=== PATIENT | male | born 1960 | race Caucasian/White ===

== ENCOUNTER 2019-11-16 10:20 | Emergency (ER) | payer MEDICARE, SELFPAY ==
--- NOTE | ~2019-11-16 | CT_ITS ---
EXAMINATION: CT abdomen pelvis w con DATE: 11/16/2019 11:43 INDICATION: Abdominal pain, nausea, vomiting, and diarrhea. TECHNIQUE: Computed tomography (CT) of the abdomen and pelvis was performed with 100 mL Omnipaque 350 intravenous contrast. Automated exposure control and iterative reconstruction technique were employe d. The dose-length product was 1605.03 mGy-cm. COMPARISON: CT abdomen and pelvis 05/18/2019, 05/14/2018, chest CT 04/14/2015 FINDINGS: The visualized portions of the lung bases demonstrate minimal atelectasis on the right. No pleural effusion. The heart size is normal. No pericardial effusion. The liver, gallbladder, spleen, and pancreas are normal. There is a 3.6 cm mass in right adrenal gland measuring soft tissue attenuat ion. There is a 1.9 cm mass in left adrenal gland measuring soft tissue attenuation. These masses marcos sured low-attenuation on the CT from 04/14/2015, consistent with adenomas. There are cysts in the kidne ys measuring up to 1.6 cm on the left. The prostate is mildly enlarged. There is diverticulosis of th e colon without evidence of diverticulitis. There are likely changes of appendectomy. There are no pa thologically enlarged lymph nodes. There is no free intraperitoneal fluid. There is severe lumbar spo ndylosis. There are bridging endplate osteophytes at multiple levels in the thoracic spine, consisten t with diffuse idiopathic skeletal hyperostosis (DISH). IMPRESSION: 1. No etiology for the patient's symptoms. Reviewed, dictated and finalized at location A. D REPRESENTATIVES DIRECTOR
--- NOTE | ~2019-11-16 | XR_ITS ---
XR chest 2V DATE: 11/16/2019 12:02 INDICATION: Vomiting TECHNIQUE: PA and lateral views COMPARISON: 05/18/2019 portable AP chest FINDINGS: Normal heart size. No hilar or mediastinal enlargement. No pulmonary infiltrate or consolid ation, pleural effusion or pulmonary vascular congestion or pneumothorax. Aortic ectasia and mild unfolding. Status post posterior cervical spine surgical fusion. There is diffuse idiopathic skeletal hyperostos is of the thoracic spine. There is prominent osteoarthritic change at the left glenohumeral joint. IMPRESSION: No active cardiopulmonary disease Reviewed, dictated and finalized at location B. OBIOLOGY LAB ANALYST
[2019-11-16 10:19] VITALS: BP 141/95; PULSE 107; RESP 20; TEMP 36.9; O2SAT 100
--- NOTE | 2019-11-16 10:24 | ED.NAVMDI ---
HPI - Nausea/Vomiting/Diarrhea General Chief complaint: Nausea/Vomiting/Diarrhea Stated complaint: ABD PAIN N/V Time Seen by Provider: 11/16/19 10:23 Source: patient and RN notes reviewed Mode of arrival: ambulatory Limitations: no limitations History of Present Illness HPI Narrative: A 59 y/o male presents to the ED with intermittent N/V for the past week. He reports that he has been having associated diaphoresis, rhinorrhea, nasal congestion, sore throat, and rt sided ABD pain. He states that he was having diarrhea but that it resolved a couple days ago. He notes that he has been on abx for MRSA since March. He also notes that eating and drinking aggravates his symptoms. He denies any rectal bleeding, hematemesis, SOB, or CP. MD elicited complaint: nausea and vomiting Onset (ago): week(s) (1) Associated nausea: Yes Associated abdominal pain: Yes Location of pain: other (rt sided) Pain consistency: intermittent Exacerbating factors: eating (and drinking) Associated symptoms: diaphoresis and other (rhinorrhea, nasal congestion, sore throat, rt sided ABD pain, and diarrhea (resolved)) Related Data Allergies Allergy/AdvReac Type Severity Reaction Status Date / Time No Known Allergies Allergy Unverified 11/16/19 11:26 Review of Systems Review of Systems: All systems reviewed & are unremarkable except as noted in HPI and below Constitutional: Constitutional: Reports other (diaphoresis) ENT: Reports nasal congestion, Reports nasal discharge and Reports sore throat Cardiovascular: Cardiovascular: Denies chest pain Respiratory: Respiratory: Denies dyspnea Gastrointestinal: Gastrointestinal: Reports abdominal pain (rt sided), Denies hematochezia, Reports diarrhea (resolved), Reports nausea, Reports vomiting and Denies hematemesis [facility] Past Medical History Medical History (Updated 11/16/19 @ 13:35 by Hector Worthy MD) Anxiety Arm fracture, left Arthritis CVA (cerebral vascular accident) Depression GERD (gastroesophageal reflux disease) HLD (hyperlipidemia) HTN (hypertension) MRSA (methicillin resistant Staphylococcus aureus) PUD (peptic ulcer disease) Skin tag Buttocks, removed TIA (transient ischemic attack) x2 Surgical History Surgical History H/O neck surgery H/O tooth extraction History of open reduction and internal fixation (ORIF) procedure Left arm Hx of appendectomy S/P total knee arthroplasty Bilateral knees Social History Social History Smoking packs per day: 0.5 Smoking cigarettes per day: 10.0 Smoking status: Current every day smoker Gender identity (if verbalized by the patient): Male Exam Narrative: Exam Narrative: General appearance: Well-developed, well-nourished Skin: Normal color, clammy skin Head: Normocephalic, nontraumatic Eyes: Clear conjunctiva ENT: Oropharynx normal, ears normal, nose normal Neck: Supple, nontender Chest and respiratory: Airway patent, no respiratory distress, no accessory muscle use Heart: Regular rate/rhythm Abdomen: Soft, diffuse abdominal tenderness, no guarding or rebound, r, no organomegaly, quiet bowel sounds Vascular: Normal peripheral pulses, normal capillary refill. Musculoskeletal: Normal range of motion, nontender back Neurologic: Alert and oriented ?3, ALARM TECHNICIAN is normal as tested, no gross motor deficit Course Course Emergency Course: Improving Vital Signs Vital signs: Vital Signs Temperature 36.9 C 11/16/19 10:19 Pulse Rate 107 H 11/16/19 10:19 Respiratory Rate 20 11/16/19 10:19 Blood Pressure 141/95 H 11/16/19 10:19 Pulse Oximetry 100 11/16/19 10:19
[2019-11-16] MEDS: SODIUM CHLORIDE 0.9% IV 1,000 ML 999 ML IV CONT (11:09)
[2019-11-16] MEDS: ONDANSETRON INJ 4 MG/2 ML VIAL IV PUSH (11:09)
[2019-11-16 11:26] LABS: Basophils Percent Auto 0.5 % (0.2-1.2); Eosinophils Absolute Auto 0.1 K/mm3 (0-0.3); Eosinophils Percent Auto 0.8 % (0-4.4); Hematocrit 46.4 % (42.0-52.0); Hemoglobin 15.5 g/dL (14.0-18.0); Immature Granulocyte Absolute 0.02 K/mm3 (0.00-0.031); Immature Granulocyte Percent A 0.3 % (0-0.5); Lymphocytes Absolute Auto 1.46 K/mm3 (0.9-3.2); Lymphocytes Percent Auto 19.5 % (18.3-44.2); Mean Corpuscular HGB Conc 33.4 g/dl (32-36); Mean Corpuscular Hemoglobin 25.7 pg (26-34); Mean Corpuscular Volume 76.8 fl (80-100); Mean Platelet Volume 10.7 fl (7.4-10.4); Monocytes Absolute Auto 0.4 K/mm3 (0.1-0.6); Monocytes Percent Auto 5.8 % (2.6-8.5); Neutrophils Absolute Auto 5.5 K/mm3 (1.3-6.7); Neutrophils Percent Auto 73.1 % (45.5-73.1); Platelet Count Result 253 k/mm3 (150-375); Red Blood Count 6.04 M/mm3 (4.6-6.20); Red Cell Distribution Width 16.7 % (11.5-14.5); White Blood Count 7.5 K/mm3 (4.5-10.0)
[2019-11-16 11:31] LABS: Estimated CRCL calculation 123 ml/min; Estimated Glomerular Filt Rate > 60
[2019-11-16 11:35] LABS: Prothrombin Time 12.4 Seconds (11.1-14.7)
[2019-11-16 11:36] LABS: Partial Thromboplastin Time 27.5 SECONDS (22.3-36.8)
[2019-11-16 11:40] LABS: Alanine Aminotransferase 22 U/L (4-50); Albumin Level 4.3 g/dL (3.5-5.1); Alkaline Phosphatase 103 U/L (38-126); Aspartate Amino Transferase 26 U/L (17-59); Bilirubin,Total 0.7 mg/dL (0.2-1.3); Blood Urea Nitrogen 18 mg/dL (9-20); Calcium 9.8 mg/dL (8.4-10.2); Carbon Dioxide 20 mmol/L (22-30); Chloride 108 mmol/L (98-107); Estimated CRCL calculation 123 ml/min; Estimated Glomerular Filt Rate > 60; Glucose 136 mg/dL (75-110); Lipase 80 U/L (23-300); Potassium 3.3 mmol/L (3.4-5.0); Sodium 136 mmol/L (137-145)
[2019-11-16 11:41] LABS: Lactic Acid Reflex 1.7 mmol/L (0.7-2.1)
[2019-11-16 11:49] VITALS: BP 126/89; PULSE 94; RESP 16; O2SAT 97
--- NOTE | 2019-11-16 12:15 | PC.NURSE ---
Patient's Penelope contacted per his request. Stated she would be here as soon as her son wakes up.
[2019-11-16 12:17] LABS: CRP 0.8 mg/dL (<1.0)
[2019-11-16 12:23] LABS: Add Urine Microscopic? YES; Appearance Urine Clear (Clear); Bilirubin Urine Negative (Negative); Blood Urine 1+ (Negative); Color Urine Yellow (Yellow); Glucose Urine UA 2+ mg/dL (Negative); Ketones Urine 1+ mg/dL (Negative); Leukocyte Esterase Ur Negative LEU/UL (Negative); Mucus Urine Rare /lpf; Nitrate Urine Negative (Negative); Protein Urine 1+ mg/dL (Negative); Squamous Epithelial Cell Urine Rare /hpf (Few); WBC Urine 0-3 /hpf
[2019-11-16 12:47] VITALS: BP 132/74; PULSE 87; RESP 16; O2SAT 97
[2019-11-16 13:07] LABS: Specific Grav Ur 1.049 (1.001-1.035)
[2019-11-16 13:59] VITALS: BP 130/88; PULSE 78; RESP 16; O2SAT 98
== END 2019-11-16 14:00 | disposition home or self-care (01) ==
PROVIDERS: Emergency Provider Emergency Medicine; PCP Internal Medicine
DX: K52.9 Noninfective gastroenteritis and colitis, unspecified (principal); B34.9 Viral infection, unspecified; E87.6 Hypokalemia; Z86.14 Personal history of Methicillin resistant Staphylococcus aureus infection; R10.9 Unspecified abdominal pain
CPT/HCPCS: 36415; 71046; 74177; 80053; 81001; 83605; 83690; 85025; 85610; 85730; 86140; 87040; 87081; 87804; 87880; 96374; 99284; J2405; J7030; Q9967

== ENCOUNTER 2019-11-26 07:57 | Outpatient (CLI) | payer MEDICARE, SELFPAY ==
--- NOTE | ~2019-11-26 | XR_ITS ---
XR shoulder RT min 2V DATE: 11/26/2019 08:32 INDICATION: Right shoulder pain. Osteoarthritis. TECHNIQUE: 4 views COMPARISON: None FINDINGS: There is moderate inferior spurring at the acromioclavicular joint. Right glenohumeral joint space is well preserved. No fracture, dislocation, periosteal reaction or bone destruction or abnormal soft tissue calcificati on is evident. IMPRESSION: Moderate inferior spurring at the right acromioclavicular joint Reviewed, dictated and finalized at location A.
--- NOTE | ~2019-11-26 | XR_ITS ---
XR shoulder LT min 2V DATE: 11/26/2019 08:32 INDICATION: Bilateral shoulder pain. Osteoarthritis. TECHNIQUE: 4 views COMPARISON: None FINDINGS: There is prominent joint space narrowing and very prominent hypertrophic spurring at the gl enohumeral joint consistent with severe osteoarthritis. There is mildly prominent degenerative spurring at the acromioclavicular joint. No fracture, dislocation, periosteal reaction or bone destruction or abnormal soft tissue calcificati on. Posterior surgical cervical spine fusion is noted bilaterally. Degenerative spurring of the thoracic spine. IMPRESSION: Severe osteoarthritis at glenohumeral joint Moderate degenerative spurring of the left acromion clinically joint Reviewed, dictated and finalized at location A.
--- NOTE | ~2019-11-26 | CT_ITS ---
EXAMINATION: CT lung screening DATE: 11/26/2019 08:22 INDICATION: Personal history of nicotine dependence, current smoker with 44 pack year history TECHNIQUE: Computed tomography (CT) of the chest was performed without intravenous contrast. The dose -length product (DLP) was 334.08 mGy-cm. Automated exposure control and iterative reconstruction tech [employer] were employed. COMPARISON: 05/18/2019 FINDINGS: No suspicious pulmonary nodules are identified. A calcified nodule of the right upper lobe is consistent with old granulomatous disease. There is mild emphysema. The lungs are free of acute op acities. There is no pleural effusion or pneumothorax. An azygos fissure is noted. No pathologically enlarged thoracic lymph nodes are identified. The heart size is normal. Mild bilateral gynecomastia i s noted.. There is moderate thoracic spondylosis. There are bilateral adrenal adenomas. IMPRESSION: 1. Lung-RADS category 1: Negative. Continue annual screening with noncontrast low-dose chest CT in 12 months. Reviewed, dictated and finalized at location A. IMPRESSION: 1. Lung-RADS category 1: Negative. Continue annual screening with noncontrast l ow-dose chest CT in 12 months.
== END 2019-11-26 07:58 | disposition home or self-care (01) ==
PROVIDERS: PCP Internal Medicine; Visit Provider Internal Medicine
DX: Z12.2 Encounter for screening for malignant neoplasm of respiratory organs (principal); Z87.891 Personal history of nicotine dependence; M19.012 Primary osteoarthritis, left shoulder
CPT/HCPCS: 73030; G0297

== ENCOUNTER 2019-11-29 09:24 | Outpatient (CLI) | payer MEDICARE, SELFPAY ==
[2019-11-29 10:03] LABS: Basophils Absolute Auto 0.1 K/mm3 (0.0-0.1); Basophils Percent Auto 0.8 % (0.2-1.2); Eosinophils Absolute Auto 0.1 K/mm3 (0-0.3); Eosinophils Percent Auto 1.5 % (0-4.4); Hematocrit 46.4 % (42.0-52.0); Hemoglobin 15.3 g/dL (14.0-18.0); Immature Granulocyte Absolute 0.03 K/mm3 (0.00-0.031); Immature Granulocyte Percent A 0.4 % (0-0.5); Lymphocytes Percent Auto 15.7 % (18.3-44.2); Mean Corpuscular Hemoglobin 26.4 pg (26-34); Mean Corpuscular Volume 80.1 fl (80-100); Mean Platelet Volume 10.8 fl (7.4-10.4); Monocytes Absolute Auto 0.5 K/mm3 (0.1-0.6); Monocytes Percent Auto 6.4 % (2.6-8.5); Neutrophils Absolute Auto 6.2 K/mm3 (1.3-6.7); Neutrophils Percent Auto 75.2 % (45.5-73.1); Platelet Count Result 245 k/mm3 (150-375); Red Blood Count 5.79 M/mm3 (4.6-6.20); Red Cell Distribution Width 16.6 % (11.5-14.5); White Blood Count 8.3 K/mm3 (4.5-10.0)
[2019-11-29 10:17] LABS: Alanine Aminotransferase 20 U/L (4-50); Albumin Level 4.7 g/dL (3.5-5.1); Alkaline Phosphatase 109 U/L (38-126); Aspartate Amino Transferase 26 U/L (17-59); Bilirubin,Total 0.5 mg/dL (0.2-1.3); Blood Urea Nitrogen 16 mg/dL (9-20); Calcium 9.8 mg/dL (8.4-10.2); Carbon Dioxide 22 mmol/L (22-30); Chloride 105 mmol/L (98-107); Estimated Glomerular Filt Rate > 60; Glucose 136 mg/dL (75-110); Potassium 4.2 mmol/L (3.4-5.0); Sodium 136 mmol/L (137-145)
[2019-11-29 10:41] LABS: Iron 67 ug/dL (49-181)
[2019-11-29 10:50] LABS: Percent Iron Saturation 20 % (20-50)
[2019-11-29 11:08] LABS: Cortisol Random 1.73 ug/dL
[2019-11-29 11:15] LABS: Vitamin D 25 Hydroxy 20.7 ng/mL
[2019-11-29 12:48] LABS: Hemoglobin A1C 5.7 % (<5.7)
[2019-12-01 12:35] LABS: DHEA-Sulfate 31 mcg/dL (38-313)
[2019-12-05 14:39] LABS: PRA 4.85 ng/mL/h (0.25-5.82)
== END 2019-11-29 09:25 | disposition home or self-care (01) ==
PROVIDERS: PCP Internal Medicine; Visit Provider Internal Medicine
DX: I99.8 Other disorder of circulatory system (principal); E55.9 Vitamin D deficiency, unspecified; Z12.5 Encounter for screening for malignant neoplasm of prostate; F32.9 Major depressive disorder, single episode, unspecified; R71.8 Other abnormality of red blood cells; R73.01 Impaired fasting glucose; D35.00 Benign neoplasm of unspecified adrenal gland
CPT/HCPCS: 36415; 80053; 82088; 82306; 82533; 82627; 82728; 83036; 83540; 83550; 84153; 84244; 85025; G0103

== ENCOUNTER 2019-12-02 07:01 | Emergency (ER) | payer MEDICARE, SELFPAY ==
--- NOTE | ~2019-12-02 | CT_ITS ---
EXAMINATION: CT abdomen pelvis w con DATE: 12/02/2019 08:26 INDICATION: Epigastric pain and vomiting TECHNIQUE: Computed tomography (CT) of the abdomen and pelvis was performed with 100 cc Omnipaque 350 intravenous contrast. The dose-length product was 1626.99 mGy-cm. Automated exposure control and ite rative reconstruction technique were employed. COMPARISON: CT dated 11/16/2019 FINDINGS: Lung bases are unremarkable. Heart size normal. No significant pleural or pericardial effus ion. There are low-density lesions in both adrenal glands, largest in the right adrenal gland measuri ng 3.7 cm, likely benign adenomas. No significant vascular abnormality. No lymphadenopathy. The liver, spleen, pancreas within normal limits. There are small subcentimeter hypodensities, many o f which are too small to adequately characterize, without significant change. These likely are benign . No lymphadenopathy. No bowel obstruction. Colonic diverticulosis without diverticulitis. No abnorma l pelvic masses or fluid collections. Prostate gland is enlarged. There are likely changes of appende ctomy. No lymphadenopathy. Gallbladder is present. There is diffuse idiopathic skeletal hyperostosis (DISH) of the thoracic spine. IMPRESSION: 1. No acute abnormality. No findings to account for patient's symptoms. Reviewed, dictated and finalized at location A.
[2019-12-02 06:58] VITALS: BP 168/117; PULSE 87; RESP 25; TEMP 35.7; O2SAT 97
[2019-12-02] MEDS: PROMETHAZINE HCL 25 MG/ML AMPUL 12.5 MG IV PUSH (07:20)
[2019-12-02] MEDS: SODIUM CHLORIDE 0.9% IV 1,000 ML 999 ML IV CONT (07:20)
[2019-12-02 07:28] LABS: Basophils Absolute Auto 0.1 K/mm3 (0.0-0.1); Basophils Percent Auto 0.8 % (0.2-1.2); Eosinophils Absolute Auto 0.3 K/mm3 (0-0.3); Eosinophils Percent Auto 2.6 % (0-4.4); Hematocrit 45.6 % (42.0-52.0); Hemoglobin 15.1 g/dL (14.0-18.0); Immature Granulocyte Absolute 0.04 K/mm3 (0.00-0.031); Immature Granulocyte Percent A 0.4 % (0-0.5); Lymphocytes Absolute Auto 1.15 K/mm3 (0.9-3.2); Lymphocytes Percent Auto 10.4 % (18.3-44.2); Mean Corpuscular HGB Conc 33.1 g/dl (32-36); Mean Corpuscular Volume 78.6 fl (80-100); Mean Platelet Volume 10.9 fl (7.4-10.4); Monocytes Absolute Auto 0.5 K/mm3 (0.1-0.6); Monocytes Percent Auto 4.7 % (2.6-8.5); Neutrophils Absolute Auto 8.9 K/mm3 (1.3-6.7); Neutrophils Percent Auto 81.1 % (45.5-73.1); Platelet Count Result 265 k/mm3 (150-375); Red Cell Distribution Width 15.9 % (11.5-14.5)
--- NOTE | 2019-12-02 07:29 | ECG_ITS ---
Measurements Intervals Almond Rate: 76 P: 61 MD: 235 QRS: 44 QRSD: 94 T: 67 QT: 381 QTc: 430 Interpretive Statements SINUS RHYTHM WITH FIRST DEGREE AV BLOCK WITH MARKED RHYTHM IRREGULARITY, POSSIBLE NON-CONDUCTED PAC, SA BLOCK, AV BLOCK INCOMPLETE RIGHT BUNDLE BRANCH BLOCK BASELINE ARTIFACT- V1-V2 ABNORMAL ECG Electronically Signed On 12-02-2019 8:44:35 CDT by Aaron Zuniga D.O.
[2019-12-02 07:41] LABS: Alanine Aminotransferase 20 U/L (4-50); Albumin Level 4.6 g/dL (3.5-5.1); Alkaline Phosphatase 132 U/L (38-126); Aspartate Amino Transferase 24 U/L (17-59); Bilirubin,Total 0.4 mg/dL (0.2-1.3); Blood Urea Nitrogen 21 mg/dL (9-20); Calcium 9.9 mg/dL (8.4-10.2); Carbon Dioxide 19 mmol/L (22-30); Chloride 107 mmol/L (98-107); Estimated Glomerular Filt Rate > 60; Glucose 174 mg/dL (75-110); Lipase 138 U/L (23-300); Sodium 137 mmol/L (137-145)
[2019-12-02 07:47] LABS: Add Urine Microscopic? YES; Appearance Urine Clear (Clear); Bilirubin Urine Negative (Negative); Blood Urine 1+ (Negative); Color Urine Yellow (Yellow); Glucose Urine UA 2+ mg/dL (Negative); Ketones Urine Trace mg/dL (Negative); Leukocyte Esterase Ur Negative LEU/UL (Negative); Mucus Urine Rare /lpf; Nitrate Urine Negative (Negative); Protein Urine Negative (Negative); Specific Grav Ur 1.016 (1.001-1.035); Squamous Epithelial Cell Urine Rare /hpf (Few); Urobilinogen Urine Negative mg/dL (<2.0); WBC Urine 0-3 /hpf
[2019-12-02 08:31] LABS: Magnesium 2.1 mg/dL (1.6-2.3)
[2019-12-02 08:35] LABS: Troponin I < 0.012 ng/mL (0.000-0.034)
[2019-12-02 08:42] VITALS: BP 175/110; PULSE 98; RESP 18; O2SAT 100
--- NOTE | 2019-12-02 09:17 | ED.NAVMDI ---
HPI - Nausea/Vomiting/Diarrhea General Chief complaint: Nausea/Vomiting/Diarrhea Stated complaint: n/v Time Seen by Provider: 12/02/19 07:02 History of Present Illness HPI Narrative: Patient is a 59-year-old male who presents the ER with epigastric pain as well as vomiting and burning that radiates up into his chest. Denies fever/chills/sweats. No alleviating factors. Has history of acid reflux and has been taking omeprazole. Denies chest pain or shortness of breath and that the symptoms are coming from his abdomen. Recent URI symptoms that he reports have improved. Reports runny nose at this time from vomiting. Related Data Home Medications Medication Instructions Recorded Confirmed aspirin 81 mg tablet,delayed 81 mg PO DAILY 11/22/19 release clopidogrel 75 mg tablet 75 mg PO DAILY 11/22/19 duloxetine 60 mg capsule,delayed 60 mg PO DAILY 11/22/19 release omeprazole 40 mg capsule,delayed 40 mg PO DAILY 11/22/19 release sulfamethoxazole 800 1 tablet PO Q12H 11/22/19 mg-trimethoprim 160 mg tablet Allergies Allergy/AdvReac Type Severity Reaction Status Date / Time No Known Allergies Allergy Verified 12/02/19 07:07 Review of Systems Review of Systems: All systems reviewed & are unremarkable except as noted in HPI and below Constitutional: Constitutional: Denies chills, Denies fever(s) and Denies weakness ENT: Denies nasal congestion and Denies sore throat Comments: Rhinorrhea Cardiovascular: Cardiovascular: Denies chest pain and Denies radiating jaw, neck or arm pain Respiratory: Respiratory: Denies cough, Denies dyspnea and Denies wheezing Gastrointestinal: Gastrointestinal: Reports abdominal pain, Reports heartburn, Denies diarrhea, Reports nausea and Reports vomiting Comments: denies black tarry stools. [facility] Past Medical History Medical History (Updated 12/02/19 @ 12:25 by Bijan Hyman MD) Anxiety Arm fracture, left Arthritis CVA (cerebral vascular accident) Depression GERD (gastroesophageal reflux disease) HLD (hyperlipidemia) HTN (hypertension) MRSA (methicillin resistant Staphylococcus aureus) PUD (peptic ulcer disease) Skin tag Buttocks, removed TIA (transient ischemic attack) x2 Surgical History Surgical History (Updated 11/22/19 @ 09:48 by Bro Hughes MD) H/O neck surgery H/O tooth extraction History of open reduction and internal fixation (ORIF) procedure Left arm Hx of appendectomy S/P total knee arthroplasty Bilateral knees Social History Social History (Updated 11/22/19 @ 09:23 by Yobany Marcial [facility]) Smoking packs per day: 0.5 Smoking cigarettes per day: 10.0 Smoking status: Current every day smoker Alcohol intake: never Substance use: never Gender identity (if verbalized by the patient): Male Spiritual care concerns: No Exam Narrative: Exam Narrative: GENERAL: ill-appearing, well-nourished, and wretching. HEAD: Normocephalic, atraumatic. ENT: Mucous membranes moist. NECK: Supple. CHEST: Clear to auscultation. No respiratory distress. HEART: Regular rate with frequent dropped beats. Normal peripheral pulses. ABDOMEN: Soft, nontender, nondistended. EXTREMITIES: Normal range of motion. No edema. SKIN: Warm, dry, no rash. NEURO: Alert and oriented x3. Course Course Emergency Course: Patient informed of results. Feels much better after Phenergan and GI cocktail. Discussed EKG with cardiology, patient seems to have first-degree AV block and occasionally patient appears to have Wenkebach when looking at the playground monitor. No need to change medications at this time. Needs follow-up with PCP. Vital Signs Vital signs: Vital Signs Temperature 96.3 F L 12/02/19 06:58 Pulse Rate 87 12/02/19 06:58 Respiratory Rate 25 H 12/02/19 06:58 Blood Pressure 168/117 H 12/02/19 06:58 Pulse Oximetry 97 12/02/19 06:58 Temperature 96.3 F L 12/02/19 06:58 Pulse Rate 106 H 12/02/19 10:37 Respiratory Rate 16 03
[2019-12-02] MEDS: BELLADONNA ALK/PHENOB ELIX 10 ML, MAG HYDROX/ALUMINUM HYD/SIMETH 30 ML, LIDOCAINE HCL 2... PO (09:18)
[2019-12-02 10:37] VITALS: BP 167/111; PULSE 106; RESP 16; O2SAT 100
[2019-12-02 12:42] VITALS: BP 145/76; PULSE 84; RESP 18; O2SAT 100
== END 2019-12-02 12:44 | disposition home or self-care (01) ==
PROVIDERS: Emergency Provider Emergency Medicine; PCP Internal Medicine
DX: K21.9 Gastro-esophageal reflux disease without esophagitis (principal); I44.0 Atrioventricular block, first degree; M19.90 Unspecified osteoarthritis, unspecified site; Z86.73 Personal history of transient ischemic attack (TIA), and cerebral infarction without residual deficits; E78.5 Hyperlipidemia, unspecified; I10 Essential (primary) hypertension; Z86.14 Personal history of Methicillin resistant Staphylococcus aureus infection; Z87.11 Personal history of peptic ulcer disease; Z79.82 Long term (current) use of aspirin; Z96.653 Presence of artificial knee joint, bilateral; I45.10 Unspecified right bundle-branch block; R94.31 Abnormal electrocardiogram [ECG] [EKG]
CPT/HCPCS: 36415; 74177; 80053; 81001; 83690; 83735; 84484; 85025; 93005; 96361; 96374; 99284; A9270; J2550; J7030; Q9967

== ENCOUNTER 2019-12-06 07:42 | Outpatient (CLI) | payer MEDICARE, SELFPAY ==
[2019-12-06 09:14] LABS: Cortisol Random 1.57 ug/dL
== END 2019-12-06 07:43 | disposition home or self-care (01) ==
PROVIDERS: PCP Internal Medicine; Visit Provider Internal Medicine
DX: D35.00 Benign neoplasm of unspecified adrenal gland (principal)
CPT/HCPCS: 36415; 82533

== ENCOUNTER 2019-12-08 07:37 | Outpatient (CLI) | payer MEDICARE, SELFPAY ==
[2019-12-11 16:10] LABS: Calculated Total (E+NE) 75 mcg/24 h (26-121); Dopamine, 24hr Urine 141 mcg/24 h (52-480); Epinephrine, 24hr Urine 11 mcg/24 h (2-24); Norepinephrine, 24hr Urine 64 mcg/24 h (15-100)
== END 2019-12-08 07:38 | disposition home or self-care (01) ==
LOC: ANHLAB 07:38
PROVIDERS: PCP Internal Medicine; Visit Provider Internal Medicine
DX: D35.00 Benign neoplasm of unspecified adrenal gland (principal)
CPT/HCPCS: 82384

== ENCOUNTER 2020-01-24 12:14 | Emergency (ER) | payer MEDICARE, SELFPAY ==
--- NOTE | ~2020-01-24 | CT_ITS ---
EXAMINATION: CT abdomen pelvis w con DATE: 01/24/2020 14:09 INDICATION: Abdominal pain. Vomiting. TECHNIQUE: Computed tomography (CT) of the abdomen and pelvis was performed with 100 cc Omnipaque 350 intravenous contrast. Automated exposure control and iterative reconstruction technique were employe d. Exam dose: 1551.61 mGy-cm total exam DLP. COMPARISON: 12/02/2019 CT abdomen pelvis 05/14/2018 CT abdomen pelvis FINDINGS: The included lower lung gann are clear of infiltrate or consolidation or mass lesion. Normal heart size. No pericardial or pleural effusion. The liver, spleen, pancreas, gallbladder, bile ducts and pancreatic duct are unremarkable. Stable bilateral adrenal masses, larger on the right, likely due to adenomas. Scattered bilateral largely stable hypoenhancing lesions of the kidneys. No urinary tract calculus or hydroureteronephrosis. Prostate enlargement. The urinary bladder appears unremarkable. Normal caliber of the abdominal aorta. No intraperitoneal or retroperitoneal or pelvic mass lesion or adenopathy or ascites. Small sliding hiatal hernia. There are numerous diverticula in the sigmoid colon; no CT evidence of diverticulitis. Probable appen dectomy. No bowel obstruction or intraperitoneal free air. There is Very small fat-containing umbilical hernia. Small left inguinal fat-containing hernia. Diffuse idiopathic skeletal hyperostosis of the lower thoracic and upper lumbar spine. Prominent dege nerative disc disease at L5-S1. There is minimal mild retrolisthesis at L5-S1. There is an IMPRESSION: No bowel obstruction or free air Small sliding hiatal hernia Diverticulosis of the colon Reviewed, dictated and finalized at Location A. Reviewed, dictated and finalized at location A.
--- NOTE | ~2020-01-24 | XR_ITS ---
XR chest 1V portable DATE: 01/24/2020 13:15 INDICATION: Weakness TECHNIQUE: Portable AP chest on 01/24/2020 at 1316 hours COMPARISON: 11/26/2019 CT lung screening FINDINGS: Lateral hyperinflation. No pulmonary infiltrate or consolidation, pleural effusion or pulmo nary vascular congestion or pneumothorax. Normal heart size. Diffuse idiopathic skeletal hyperostosis of the thoracic spine. Prominent osteoarthritic change at th e left glenohumeral joint. Degenerative change at the acromioclavicular joints. Posterior cervical spine surgical fusion. IMPRESSION: Bilateral hyperinflation; no active cardiopulmonary disease Reviewed, dictated and finalized at location A.
[2020-01-24 12:20] VITALS: BP 171/117; PULSE 100; RESP 18; TEMP 36.3; O2SAT 100
--- NOTE | 2020-01-24 12:43 | ED.NAVMDI ---
HPI - Nausea/Vomiting/Diarrhea General Chief complaint: Nausea/Vomiting/Diarrhea Stated complaint: vomiting Time Seen by Provider: 01/24/20 12:18 Source: patient Mode of arrival: wheelchair Limitations: no limitations History of Present Illness HPI Narrative: This is a 59 year old male that presents to the ER for vomiting since this morning. Reports he has not been able to keep anything down. He has been vomiting all morning. Reports associated lower abdominal pain. Also reports dysuria. Denies fever, diarrhea, or hematuria. Related Data Home Medications Medication Instructions Recorded Confirmed aspirin 81 mg tablet,delayed 81 mg PO DAILY 11/22/19 release sulfamethoxazole 800 1 tablet PO Q12H 12/22/19 mg-trimethoprim 160 mg tablet Allergies Allergy/AdvReac Type Severity Reaction Status Date / Time No Known Allergies Allergy Verified 12/22/19 08:11 Review of Systems Review of Systems: Narrative: CONSTITUTIONAL: Denies fever CARDIOVASCULAR: Denies chest pain RESPIRATORY: Denies cough or dyspnea. GASTROINTESTINAL: Reports abdominal pain, nausea, vomiting. Denies diarrhea. GENITOURINARY: Reports dysuria. Denies hematuria. All systems reviewed & are unremarkable except as noted in HPI and below PMFSH Past Medical History Medical History (Updated 01/24/20 @ 16:11 by Laura Desir PA-C) Anxiety Arm fracture, left Arthritis CVA (cerebral vascular accident) Depression GERD (gastroesophageal reflux disease) HLD (hyperlipidemia) HTN (hypertension) MRSA (methicillin resistant Staphylococcus aureus) PUD (peptic ulcer disease) Skin tag Buttocks, removed TIA (transient ischemic attack) x2 Surgical History Surgical History (Updated 11/22/19 @ 09:48 by Bro Hughes MD) H/O neck surgery H/O tooth extraction History of open reduction and internal fixation (ORIF) procedure Left arm Hx of appendectomy S/P total knee arthroplasty Bilateral knees Social History Social History (Updated 11/22/19 @ 09:23 by RAMÍREZ Sue) Smoking packs per day: 0.5 Smoking cigarettes per day: 10.0 Smoking status: Current every day smoker Alcohol intake: never Substance use: never Gender identity (if verbalized by the patient): Male Spiritual care concerns: No Exam Narrative: Exam Narrative: GENERAL: Well-appearing, well-nourished, and in acute distress due to pain. HEAD: Normocephalic, atraumatic. EYES: EOMI. CHEST: Clear to auscultation. No respiratory distress. No wheezes rales or rhonchi HEART: Regular rate and rhythm. No murmur heard. Normal peripheral pulses. ABDOMEN: Soft, nondistended, normal active bowel sounds. Mild tenderness to palpation throughout the abdomen, without guarding EXTREMITIES: Normal range of motion. No edema. SKIN: Warm, dry, no rash. NEURO: No focal deficits. Alert and oriented x3. PSYCH: Normal mood and affect Course Consultations Consultation #1: Spoke with Dr. Hughes about patient and work-up will follow-up in clinic. Date: 01/24/20 Time: 16:24 Vital Signs Vital signs: Vital Signs Temperature 97.4 F L 01/24/20 12:20 Pulse Rate 100 01/24/20 12:20 Respiratory Rate 18 01/24/20 12:20 Blood Pressure 171/117 H 01/24/20 12:20 Pulse Oximetry 100 01/24/20 12:20 Temperature 97.4 F L 01/24/20 12:20 Pulse Rate 60 01/24/20 14:51 Respiratory Rate 18 01/24/20 14:51 Blood Pressure 168/97 H 01/24/20 14:51 Pulse Oximetry 100 01/24/20 14:51 MDM - Nausea/Vomiting/Diarrhea MDM Narrative Medical decision making narrative: Patient presents the emergency department for nausea and vomiting this morning. Patient is afebrile and nontoxic-appearing. Vitals are normal other than elevation in blood pressure to systolic in the 170s. Most recent blood pressure 168/97. Patient was instructed to follow-up with his primary care doctor for this. CBC with mild leukocytosis to 12.1. Metabolic panel without acute changes. Lactic acid was elevated
[2020-01-24] MEDS: SODIUM CHLORIDE 0.9% IV 1,000 ML 999 ML IV CONT (12:45)
[2020-01-24] MEDS: FAMOTIDINE 20 MG/2 ML VIAL IV PUSH (12:46)
[2020-01-24] MEDS: ONDANSETRON INJ 4 MG/2 ML VIAL IV PUSH (12:46)
[2020-01-24 12:57] LABS: Basophils Absolute Auto 0.1 K/mm3 (0.0-0.1); Basophils Percent Auto 0.7 % (0.2-1.2); Eosinophils Percent Auto 0.1 % (0-4.4); Hematocrit 49.5 % (42.0-52.0); Hemoglobin 16.8 g/dL (14.0-18.0); Immature Granulocyte Absolute 0.04 K/mm3 (0.00-0.031); Immature Granulocyte Percent A 0.3 % (0-0.5); Lymphocytes Absolute Auto 1.01 K/mm3 (0.9-3.2); Lymphocytes Percent Auto 8.3 % (18.3-44.2); Mean Corpuscular HGB Conc 33.9 g/dl (32-36); Mean Corpuscular Hemoglobin 26.8 pg (26-34); Mean Corpuscular Volume 79.1 fl (80-100); Mean Platelet Volume 11.5 fl (7.4-10.4); Monocytes Absolute Auto 0.5 K/mm3 (0.1-0.6); Neutrophils Absolute Auto 10.5 K/mm3 (1.3-6.7); Neutrophils Percent Auto 86.6 % (45.5-73.1); Platelet Count Result 348 k/mm3 (150-375); Red Blood Count 6.26 M/mm3 (4.6-6.20); Red Cell Distribution Width 15.2 % (11.5-14.5); White Blood Count 12.1 K/mm3 (4.5-10.0)
[2020-01-24 13:06] LABS: INR 0.9; Prothrombin Time 11.9 Seconds (11.1-14.7)
[2020-01-24 13:07] LABS: Lipase 86 U/L (23-300); Partial Thromboplastin Time 26.9 SECONDS (22.3-36.8)
[2020-01-24 13:08] LABS: Lactic Acid Reflex 3.1 mmol/L (0.7-2.1)
[2020-01-24 13:21] LABS: Alanine Aminotransferase 23 U/L (4-50); Albumin Level 4.7 g/dL (3.5-5.1); Alkaline Phosphatase 131 U/L (38-126); Aspartate Amino Transferase 26 U/L (17-59); Bilirubin,Total 0.7 mg/dL (0.2-1.3); Blood Urea Nitrogen 19 mg/dL (9-20); CRP 0.7 mg/dL (<1.0); Calcium 10.2 mg/dL (8.4-10.2); Carbon Dioxide 19 mmol/L (22-30); Chloride 107 mmol/L (98-107); Estimated CRCL calculation 112 ml/min; Estimated Glomerular Filt Rate > 60; Glucose 160 mg/dL (75-110); Potassium 3.6 mmol/L (3.4-5.0); Sodium 137 mmol/L (137-145)
--- NOTE | 2020-01-24 13:29 | PC.NURSE ---
Pt unable to give urine at this time.
[2020-01-24 13:47] LABS: Add Urine Microscopic? YES; Appearance Urine Clear (Clear); Bilirubin Urine Negative (Negative); Blood Urine 1+ (Negative); Color Urine Yellow (Yellow); Glucose Urine UA 2+ mg/dL (Negative); Ketones Urine 1+ mg/dL (Negative); Leukocyte Esterase Ur Negative LEU/UL (Negative); Mucus Urine Rare /lpf; Nitrate Urine Negative (Negative); Protein Urine 1+ mg/dL (Negative); Specific Grav Ur 1.019 (1.001-1.035); Squamous Epithelial Cell Urine Rare /hpf (Few); Urobilinogen Urine Negative mg/dL (<2.0); WBC Urine 0-3 /hpf
[2020-01-24 14:51] VITALS: BP 168/97; PULSE 60; RESP 18; O2SAT 100
[2020-01-24 15:54] LABS: Reflex Lactic Acid Yes or No Add Lactic
[2020-01-24 16:02] LABS: Lactic Acid 2.2 mmol/L (0.7-2.1)
== END 2020-01-24 16:39 | disposition home or self-care (01) ==
PROVIDERS: Physician Assistant; Emergency Provider Emergency Medicine; PCP Internal Medicine
DX: R11.2 Nausea with vomiting, unspecified (principal); Z79.82 Long term (current) use of aspirin; K21.9 Gastro-esophageal reflux disease without esophagitis; E78.5 Hyperlipidemia, unspecified; I10 Essential (primary) hypertension; Z87.11 Personal history of peptic ulcer disease; Z86.14 Personal history of Methicillin resistant Staphylococcus aureus infection; Z96.653 Presence of artificial knee joint, bilateral; Z86.73 Personal history of transient ischemic attack (TIA), and cerebral infarction without residual deficits; F17.200 Nicotine dependence, unspecified, uncomplicated; K44.9 Diaphragmatic hernia without obstruction or gangrene; K57.90 Diverticulosis of intestine, part unspecified, without perforation or abscess without bleeding; F17.210 Nicotine dependence, cigarettes, uncomplicated; R10.30 Lower abdominal pain, unspecified
CPT/HCPCS: 36415; 71045; 74177; 80053; 81001; 83605; 83690; 85025; 85610; 85730; 86140; 96365; 96375; 99284; J0131; J2405; J7030; Q9967

== ENCOUNTER 2020-02-16 07:43 | Outpatient (CLI) | payer MEDICARE, SELFPAY ==
[2020-02-16 08:40] LABS: Alanine Aminotransferase 14 U/L (4-50); Alkaline Phosphatase 90 U/L (38-126); Aspartate Amino Transferase 22 U/L (17-59); Bilirubin,Total 0.4 mg/dL (0.2-1.3); Blood Urea Nitrogen 14 mg/dL (9-20); Calcium 9.2 mg/dL (8.4-10.2); Carbon Dioxide 29 mmol/L (22-30); Chloride 105 mmol/L (98-107); Cholesterol 209 mg/dL (0-200); Estimated Glomerular Filt Rate > 60; Glucose 115 mg/dL (75-110); HDL Direct 43 mg/dL; Potassium 4.4 mmol/L (3.4-5.0); Sodium 137 mmol/L (137-145); Triglycerides 75 mg/dL (<150)
[2020-02-16 08:51] LABS: LDL Cholesterol Direct 142 mg/dL
[2020-02-18 03:41] LABS: Insulin Level Total 12.4 uIU/mL (<=19.6)
[2020-02-19 06:21] LABS: C-Peptide 2.88 ng/mL (0.80-3.85)
== END 2020-02-16 07:44 | disposition home or self-care (01) ==
PROVIDERS: PCP Internal Medicine; Visit Provider Internal Medicine
DX: E03.9 Hypothyroidism, unspecified (principal); E78.5 Hyperlipidemia, unspecified; E16.2 Hypoglycemia, unspecified; G40.909 Epilepsy, unspecified, not intractable, without status epilepticus
CPT/HCPCS: 36415; 80053; 80061; 83525; 84443; 84681

== ENCOUNTER 2020-04-01 14:55 | Emergency (ER) | payer MEDICARE, SELFPAY ==
[2020-04-01 15:02] VITALS: BP 143/110; PULSE 96; RESP 24; TEMP 36.7; O2SAT 95
--- NOTE | 2020-04-01 15:37 | PC.NURSE ---
Asked pt for urine sample, left urinal at bedside
[2020-04-01 15:41] LABS: Basophils Absolute Auto 0.1 K/mm3 (0.0-0.1); Basophils Percent Auto 0.5 % (0.2-1.2); Eosinophils Absolute Auto 0.1 K/mm3 (0-0.3); Eosinophils Percent Auto 0.7 % (0-4.4); Hematocrit 51.1 % (42.0-52.0); Hemoglobin 17.4 g/dL (14.0-18.0); Immature Granulocyte Absolute 0.05 K/mm3 (0.00-0.031); Immature Granulocyte Percent A 0.4 % (0-0.5); Lymphocytes Percent Auto 10.5 % (18.3-44.2); Mean Corpuscular HGB Conc 34.1 g/dl (32-36); Mean Corpuscular Hemoglobin 27.1 pg (26-34); Mean Corpuscular Volume 79.5 fl (80-100); Mean Platelet Volume 11.7 fl (7.4-10.4); Monocytes Absolute Auto 0.7 K/mm3 (0.1-0.6); Monocytes Percent Auto 5.3 % (2.6-8.5); Neutrophils Percent Auto 82.6 % (45.5-73.1); Platelet Count Result 317 k/mm3 (150-375); Red Blood Count 6.43 M/mm3 (4.6-6.20); Red Cell Distribution Width 15.9 % (11.5-14.5); White Blood Count 13.4 K/mm3 (4.5-10.0)
--- NOTE | 2020-04-01 15:52 | ED.GENADULT ---
HPI - General Adult General Chief complaint: Nausea/Vomiting/Diarrhea Stated complaint: Abd pain N/V Time Seen by Provider: 04/01/20 14:56 History of Present Illness HPI narrative: Patient is a 59 y/o male complaining of nausea and vomiting for 4-5 hours. He states that he vomited bile and vomited more than 10 times. There is no alleviating or exacerbating factor. He also has some generalized abdominal pain. He denies diarrhea. Related Data Home Medications Medication Instructions Recorded Confirmed aspirin 81 mg tablet,delayed 81 mg PO DAILY 11/22/19 release sulfamethoxazole 800 1 tablet PO Q12H 02/15/20 mg-trimethoprim 160 mg tablet clopidogrel [Plavix] 75 mg PO DAILY 04/01/20 04/01/20 ipratropium bromide INTRANASAL 04/01/20 Allergies Allergy/AdvReac Type Severity Reaction Status Date / Time No Known Allergies Allergy Verified 03/25/20 09:46 Review of Systems Constitutional: Constitutional: Denies chills, Denies fever(s), Denies headache(s) and Denies weakness Eyes: Eyes: Denies blurry vision ENT: Denies headache(s) and Denies neck pain Cardiovascular: Cardiovascular: Denies chest pain and Denies dyspnea Respiratory: Respiratory: Denies cough and Denies dyspnea Gastrointestinal: Gastrointestinal: Reports abdominal pain, Denies diarrhea, Reports nausea and Reports vomiting Genitourinary: Genitourinary: Denies hematuria and Denies dysuria Musculoskeletal: Musculoskeletal: Denies back pain and Denies neck pain Neurologic: Denies headache(s) and Denies weakness [facility] Past Medical History Medical History Anxiety Arm fracture, left Arthritis CVA (cerebral vascular accident) Depression GERD (gastroesophageal reflux disease) HLD (hyperlipidemia) HTN (hypertension) MRSA (methicillin resistant Staphylococcus aureus) Osteoarthritis of left shoulder PUD (peptic ulcer disease) Skin tag Buttocks, removed TIA (transient ischemic attack) x2 Surgical History Surgical History H/O neck surgery H/O tooth extraction History of open reduction and internal fixation (ORIF) procedure Left arm Hx of appendectomy S/P total knee arthroplasty Bilateral knees Social History Social History Smoking packs per day: 0.5 Smoking cigarettes per day: 10.0 Smoking status: Current every day smoker Alcohol intake: never Substance use: never Gender identity (if verbalized by the patient): Male Spiritual care concerns: No Exam Const: General: no acute distress and well developed Orientation/consciousness: oriented to person, oriented to place, oriented to time and patient oriented x3 HENMT: Head: normocephalic Ears: external ears normal General nose exam: Normal external nose present Eyes: General: appearance normal, both eyes and all related structures Conjunctivae: conjunctivae normal Neck: Neck: normal visual inspection and full ROM Chest: Chest palpation & inspection: normal inspection of the chest and no tenderness Resp: Effort & Inspection: normal respiratory effort Auscultation: clear to auscultation bilaterally Cardio: Rate: regular rate Rhythm: regular rhythm GI: GI Palp: No abdominal tenderness and Yes Soft to palpation Skin: General skin exam: normal color and turgor normal Neuro: General: oriented to person, oriented to place, oriented to time and patient oriented x3 Cognition (Neuro): normal cognition Extrem: General: normal to inspection, full ROM and no pedal edema Psych: Appearance: grossly normal Mental Status: mental status grossly normal Affect: normal affect Course Reevaluation(s) Reevaluation #1: Nurse reports that patient has left before he was re-evaluated or given any instructions. He is considered to have left AMA. Date: 04/01/20 Time: 19:35 Vital Signs Vital signs: Vital Signs Temperature
[2020-04-01 15:54] LABS: Alanine Aminotransferase 26 U/L (4-50); Alkaline Phosphatase 133 U/L (38-126); Aspartate Amino Transferase 32 U/L (17-59); Bilirubin,Total 0.9 mg/dL (0.2-1.3); Blood Urea Nitrogen 15 mg/dL (9-20); Calcium 10.7 mg/dL (8.4-10.2); Carbon Dioxide 21 mmol/L (22-30); Chloride 104 mmol/L (98-107); Estimated CRCL calculation 81 ml/min; Estimated Glomerular Filt Rate 52; Glucose 150 mg/dL (75-110); Lipase 102 U/L (23-300); Potassium 3.6 mmol/L (3.4-5.0); Sodium 136 mmol/L (137-145)
[2020-04-01 16:07] LABS: Add Urine Microscopic? YES; Appearance Urine Clear (Clear); Bilirubin Urine Negative (Negative); Blood Urine 1+ (Negative); Color Urine Yellow (Yellow); Glucose Urine UA Negative (Negative); Ketones Urine Trace mg/dL (Negative); Leukocyte Esterase Ur Trace LEU/UL (Negative); Mucus Urine Rare /lpf; Nitrate Urine Negative (Negative); Protein Urine 1+ mg/dL (Negative); RBC Urine 21-50 /hpf (0-2); Specific Grav Ur 1.019 (1.001-1.035); Squamous Epithelial Cell Urine Rare /hpf (Few)
[2020-04-01 16:21] LABS: Amphetamine Screen Urine Negative (Negative); Barbiturate Screen Urine Negative (Negative); Benzodiazepines Screen Urine Negative (Negative); Cannabinoid Screen Urine Positive (Negative); Cocaine Screen Urine Negative (Negative); Methadone Screen Urine Negative (Negative); Opiate Screen Urine Negative (Negative); Phencyclidine Screen Urine Negative (Negative)
[2020-04-01 17:28] VITALS: BP 142/68; PULSE 78; RESP 24; O2SAT 99
--- NOTE | 2020-04-01 19:35 | PC.NURSE ---
pt seen walking out of ed by multiple ed staff at this time.
--- NOTE | 2020-04-01 19:41 | PC.NURSE ---
attempted to call patient and emergency contact in chart to find out if patient left ed with iv in. no answer. will try again.
--- NOTE | 2020-04-01 20:03 | PC.NURSE ---
attempted to call patient again, no answer. ed charge nurse made aware.
== END 2020-04-01 20:03 | disposition left against medical advice (07) ==
PROVIDERS: Emergency Provider Emergency Medicine; PCP Internal Medicine
DX: R11.15 Cyclical vomiting syndrome unrelated to migraine (principal); E78.5 Hyperlipidemia, unspecified; I10 Essential (primary) hypertension; K21.9 Gastro-esophageal reflux disease without esophagitis; Z86.14 Personal history of Methicillin resistant Staphylococcus aureus infection; M19.012 Primary osteoarthritis, left shoulder; Z96.653 Presence of artificial knee joint, bilateral; F17.210 Nicotine dependence, cigarettes, uncomplicated; Z86.73 Personal history of transient ischemic attack (TIA), and cerebral infarction without residual deficits; Z79.02 Long term (current) use of antithrombotics/antiplatelets; Z79.82 Long term (current) use of aspirin
CPT/HCPCS: 36415; 80053; 80307; 81001; 83690; 85025; 99283

== ENCOUNTER 2023-03-04 05:17 | Inpatient (IN) | payer MEDICARE, SELFPAY ==
[2023-03-04] VITALS (14 sets, daily range): BP systolic 111–184; BP diastolic 69–124; PULSE 58–98; RESP 12–30; TEMP 35–36.6; O2SAT 90–99; BMI 40.8
--- NOTE | ~2023-03-04 | CT_ITS ---
Clinical Indication: Esophagitis, vomiting, abdominal pain CT Scan of the Chest, Abdomen, and Pelvis with Contrast: Technique: Contiguous sections were acquired throughout the chest, abdomen, and pelvis after intraven ous administration of 100 cc of Omnipaque 350. Dose reduction technique was used on this scan by uti lizing automated exposure control and iterative reconstruction technique. The dose-length product (DL P) was 2324.10 mGy-cm. COMPARISON: 01/24/2020 Findings: There is no evidence of any significant mediastinal, hilar or axillary lymphadenopathy. Questionable mild, diffuse esophageal wall thickening. No aortic aneurysm or dissection. No large central pulmonar y embolus evident. There is no evidence of pleural or pericardial effusion. There is focal nodularity in the right middle lobe with somewhat tree-in-bud appearance. No other pul monary abnormality seen. The liver, spleen, pancreas, gallbladder, and kidneys are within normal limits. Stable 3.7 cm right a drenal nodule. Stable 1.9 cm left adrenal nodule. No evidence of aortic aneurysm. No lymphadenopathy . No bowel obstruction or bowel wall thickening. There is no evidence to suggest acute appendicitis. Urinary bladder is unremarkable. Prostate gland and seminal vesicles are unremarkable. No ascites. Impression: Probable focal small airways infectious process in the right middle lobe. Consider follow-up CT to as sess resolution as indicated. Questionable esophagitis. Stable bilateral adrenal adenomas, right larger than left. Reviewed, dictated and finalized at [facility]. Impression: Probable focal small airways infectious process in the right middle lobe. Consi makayla follow-up CT to assess resolution as indicated. Questionable esophagitis. Stable bilateral adrenal adenomas, right larger than left.
[2023-03-04 05:47] LABS: Glucose Point of Care 175 mg/dl (65-105)
[2023-03-04 05:56] LABS: Basophils Absolute Auto 0.1 K/mm3 (0.0-0.1); Basophils Percent Auto 0.5 % (0.2-1.2); Eosinophils Absolute Auto 0.2 K/mm3 (0-0.3); Eosinophils Percent Auto 1.8 % (0-4.4); Hematocrit 54.4 % (42.0-52.0); Hemoglobin 17.5 g/dL (14.0-18.0); Immature Granulocyte Absolute 0.07 K/mm3 (0.00-0.031); Immature Granulocyte Percent A 0.5 % (0-0.5); Lymphocytes Absolute Auto 1.74 K/mm3 (0.9-3.2); Mean Corpuscular HGB Conc 32.2 g/dl (32-36); Mean Corpuscular Hemoglobin 26.6 pg (26-34); Mean Corpuscular Volume 82.7 fl (80-100); Monocytes Absolute Auto 0.7 K/mm3 (0.1-0.6); Monocytes Percent Auto 4.9 % (2.6-8.5); Neutrophils Absolute Auto 10.6 K/mm3 (1.3-6.7); Neutrophils Percent Auto 79.3 % (45.5-73.1); Platelet Count Result 243 k/mm3 (150-375); Red Blood Count 6.58 M/mm3 (4.6-6.20); Red Cell Distribution Width 16.7 % (11.5-14.5); White Blood Count 13.4 K/mm3 (4.5-10.0)
[2023-03-04] MEDS: PANTOPRAZOLE SODIUM IV 40 MG VIAL 80 MG IV PUSH (06:03)
[2023-03-04] MEDS: SODIUM CHLORIDE 0.9% IV 2,000 ML 999 ML IV CONT (06:03)
[2023-03-04] MEDS: ONDANSETRON INJ 4 MG/2 ML VIAL IV PUSH (06:03)
[2023-03-04 06:34] LABS: Influenza A QL RT-PCR Negative (Negative); Influenza B QL RT-PCR Negative (Negative); RSV RNA, RT-PCR Negative (Negative); SARS-CoV-2 RNA PCR Negative (Negative)
[2023-03-04 06:44] LABS: Alanine Aminotransferase 27 U/L (6-50); Albumin Level 4.4 g/dL (3.5-5.1); Alkaline Phosphatase 92 U/L (38-126); Anion Gap 11 mmol/L (8-16); Aspartate Amino Transferase 27 U/L (17-59); Bilirubin,Total 0.7 mg/dL (0.2-1.3); Blood Urea Nitrogen 19 mg/dL (9-20); Calcium 9.7 mg/dL (8.4-10.2); Carbon Dioxide 23 mmol/L (22-30); Chloride 106 mmol/L (98-107); Estimated CRCL calculation 125 ml/min; Estimated Glomerular Filt Rate > 60; Glucose 176 mg/dL (65-110); Lipase 97 U/L (23-300); Magnesium 1.9 mg/dL (1.6-2.3); Potassium 3.6 mmol/L (3.4-5.0); Sodium 140 mmol/L (137-145)
[2023-03-04 06:52] LABS: Creatine Kinase 116 U/L (55-170); Lipase 94 U/L (23-300); Magnesium 1.9 mg/dL (1.6-2.3); Phosphorus 3.1 mg/dL (2.5-4.5)
[2023-03-04 06:53] LABS: NT Pro B Type Natriuretic Pept 46 pg/mL (19.9-100)
[2023-03-04 06:58] LABS: Troponin I 0.033 ng/mL (0.000-0.034)
[2023-03-04 06:59] LABS: Appearance Urine Clear (Clear); Bacteria Urine None Seen /hpf; Bilirubin Urine Negative (Negative); Blood Urine 1+ (Negative); Color Urine Yellow (Yellow); Glucose Urine UA 2+ mg/dL (Negative); Ketones Urine 1+ mg/dL (Negative); Leukocyte Esterase Ur Negative LEU/UL (Negative); Nitrate Urine Negative (Negative); Non Pathogenic Casts 0-2; Protein Urine 2+ mg/dL (Negative); RBC Urine 21-50 /hpf (0-2); Specific Grav Ur 1.025 (1.001-1.035); Squamous Epithelial Cell Urine None seen /hpf (Few)
[2023-03-04 07:07] LABS: Partial Thromboplastin Time 29.5 SECONDS (22.3-36.8); Prothrombin Time 13.7 Seconds (11.1-14.7)
[2023-03-04 07:11] LABS: Add Urine Microscopic? YES
[2023-03-04] MEDS: METOCLOPRAMIDE HCL INJ 10 MG/2 ML VIAL IV PUSH (07:45)
--- NOTE | 2023-03-04 08:04 | ED.GENADULT ---
HPI - General Adult General Chief complaint: Nausea/Vomiting/Diarrhea Stated complaint: nausea/vomiting Time Seen by Provider: 03/04/23 05:40 History of Present Illness HPI narrative: This is a 62-year-old male presenting to ED with chief complaint of violent retching for the last 3 hours. He states that his is streaked with blood. He has epigastric discomfort as well as the sensation of something stuck in his throat. He denies fever chills chest pain or shortness of breath. Denies urinary symptoms. Patient has a history of Alvarado's esophagus. Related Data Home Medications Medication Instructions Recorded Confirmed aspirin 81 mg tablet,delayed 81 mg PO DAILY 11/22/19 release (Adult Low Dose Aspirin) sulfamethoxazole 800 1 tablet PO Q12H 02/15/20 mg-trimethoprim 160 mg tablet (Bactrim DS) clopidogrel 75 mg tablet (Plavix) 75 mg PO DAILY 04/01/20 04/01/20 ipratropium bromide 42 mcg (0.06 intranasal 04/01/20 %) nasal spray Allergies Allergy/AdvReac Type Severity Reaction Status Date / Time No Known Allergies Allergy Verified 03/25/20 09:46 [facility] Past Medical History Medical History (Updated 03/04/23 @ 08:33 by Delta White MD) Anxiety Arm fracture, left Arthritis CVA (cerebral vascular accident) Depression GERD (gastroesophageal reflux disease) HLD (hyperlipidemia) HTN (hypertension) MRSA (methicillin resistant Staphylococcus aureus) Osteoarthritis of left shoulder PUD (peptic ulcer disease) Skin tag Buttocks, removed TIA (transient ischemic attack) x2 Surgical History Surgical History H/O neck surgery H/O tooth extraction History of open reduction and internal fixation (ORIF) procedure Left arm Hx of appendectomy S/P total knee arthroplasty Bilateral knees Social History Social History Smoking packs per day: 0.5 Smoking cigarettes per day: 10.0 Smoking status: Current every day smoker Alcohol intake: never Substance use: never Gender identity (if verbalized by the patient): Male Spiritual care concerns: No Exam Narrative: APPEARANCE: patient is pale diaphoretic and clammy Head: atraumatic. EYES: EOMI, NOSE: Atraumatic NECK: Trachea midline RESPIRATORY: no increased rate of breathing, scattered crackles CARDIOVASCULAR: RRR, no peripheral edema ABDOMINAL: tenderness to palpation in the epigastric area MUSCULOSKELETAl: No obvious deformities NEURO: Alert. Moving 4/4 extremities SKIN:: cool clammy diaphoretic PSYCHIATRIC: Normal affect Course Vital Signs Vital signs: Vital Signs Pulse Rate 91 03/04/23 05:20 Respiratory Rate 20 03/04/23 05:20 Blood Pressure 152/124 H 03/04/23 05:20 Pulse Oximetry 96 03/04/23 05:20 Oxygen Delivery Room Air 03/04/23 05:20 Temperature 97.7 F 03/04/23 07:52 Pulse Rate 58 L 03/04/23 07:53 Respiratory Rate 19 03/04/23 07:53 Blood Pressure 167/102 H 03/04/23 07:53 Pulse Oximetry 96 03/04/23 07:53 Oxygen Delivery Room Air 03/04/23 05:20 Medical Decision Making MDM Narrative Medical decision making narrative: -Presentation: 62-year-old presenting with violent retching and vomiting. On arrival he was cool clammy and diaphoretic with a core temperature of 95?. A full sepsis workup has been ordered. CT chest abdomen pelvis has been ordered. Patient has been given fluid resuscitation and antiemetics. He was placed under a Terry Hugger. 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 -[facility]
[2023-03-04 08:52] LABS: Reflex Lactic Acid Yes or No Add Lactic
[2023-03-04 09:51] LABS: Lactic Acid 1.3 mmol/L (0.7-2.0)
[2023-03-04] MEDS: AZITHROMYCIN 500 MG/NS 250 ML 500 MG/250 ML BAG 250 MG IVPB (09:53)
[2023-03-04 10:15] LABS: Troponin I 0.025 ng/mL (0.000-0.034)
[2023-03-04 11:37] LABS: Glucose Point of Care 152 mg/dl (65-105)
--- NOTE | 2023-03-04 13:31 | PM.IMHP ---
H&P: HPI History of Present Illness Date/Time: 03/04/23 13:31 Chief Complaint: Nausea and with streaks of blood, history of Alvarado's esophagitis. Narrative: This is a 62-year-old male patient who does not follow with primary care with a history of hypertension, diabetes, prior CVA with residual right facial numbness, peptic ulcer disease, GERD and Alvarado's esophagitis who presented overnight to the ER with prolonged vomiting including streaks of blood. Patient reports periodic episodes of vomiting that lasts for hours, last episode 3-4 years ago. On ER workup patient noted to have elevated WBC, elevated lactic acid and CT findings to indicate a right middle lobe infectious process. Viral panel was negative. Patient started on IV fluids, ceftriaxone and azithromycin and admitted for further management of community associated pneumonia. Patient reports generalized abdominal pain without ongoing emesis at time of exam. Repeat lactic acid after IV fluids was normal. Blood cultures in process. Patient denied fever or chills. Patient reports he has taken himself all his prescribed medications except omeprazole. He states he usually takes 40 mg daily but increases this to 40 mg bid after an event like this. Review of Systems Review of Systems: All systems reviewed & are unremarkable except as noted in HPI and below Constitutional: Comments: feels the room is hot and he is clammy, no chills Cardiovascular: Comments: denies chest pain Respiratory: Comments: denies cough or difficulty breathing Gastrointestinal: Comments: still endorses some nausea as well as generalized abdominal pain from vomiting for over 5 hours, denies constipation or diarrhea, denies black/tarry or blood streaked stool PMFSH Past Medical History Medical History (Updated 03/04/23 @ 16:27 by Alfonso Esquivel APRN) Anxiety Arm fracture, left Arthritis CVA (cerebral vascular accident) Depression GERD (gastroesophageal reflux disease) HLD (hyperlipidemia) HTN (hypertension) MRSA (methicillin resistant Staphylococcus aureus) Osteoarthritis of left shoulder PUD (peptic ulcer disease) Skin tag Buttocks, removed TIA (transient ischemic attack) x2 Surgical History Surgical History H/O neck surgery H/O tooth extraction History of open reduction and internal fixation (ORIF) procedure Left arm Hx of appendectomy S/P total knee arthroplasty Bilateral knees Social History Social History Smoking packs per day: 0.5 Smoking cigarettes per day: 10.0 Smoking status: Current every day smoker Alcohol intake: never Substance use: current Substance use type: marijuana Lack of Transportation: No Lack of Food: Never True Current Housing: I Have Housing Concerned About Future Housing: No Difficulty Paying Gas/Electric Bills: No Difficulty Paying for Meds: No Currently Unemployed: No Education: High School Diploma/GED Difficulty w/ Childcare or Family Care: No Gender identity (if verbalized by the patient): Male Spiritual care concerns: No Meds Home Medications and Allergies Home Medications Medication Instructions Recorded Confirmed Type aspirin 81 mg tablet,delayed 81 mg PO DAILY 11/22/19 03/04/23 History release (Adult Low Dose Aspirin) duloxetine 60 mg capsule,delayed 60 mg PO DAILY #90 caps 12/05/19 03/04/23 Rx release (Cymbalta) blood-glucose meter (Accu-Chek #1 ea 01/02/20 03/04/23 Rx Guide Glucose Meter) blood sugar diagnostic (Accu-Chek #100 ea 01/15/20 03/04/23 Rx Guide test strips) lancets (Accu-Chek Fastclix Lancet #100 ea 01/15/20 03/04/23 Rx Drum) omeprazole 40 mg capsule,delayed 40 mg PO BID #180 caps 01/30/20 03/04/23 Rx release sulfamethoxazole 800 1 tablet PO Q12H 02/15/20 03/04/23 History mg-trimethoprim 160 mg tablet (Bactrim DS) hy
--- NOTE | 2023-03-04 14:05 | ECG_ITS ---
Measurements Intervals [place] Rate: 69 P: 72 VT: 256 QRS: 18 QRSD: 142 T: 63 QT: 408 QTc: 439 Interpretive Statements SINUS RHYTHM WITH FIRST DEGREE AV BLOCK WITH OCCASIONAL VENTRICULAR PREMATURE COMPLEXES WITH OCCASIONAL NON-CONDUCTED P-WAVE, POSSIBLY BLOCKED PACS RIGHT BUNDLE BRANCH BLOCK [120+ ms QRS DURATION, UPRIGHT V1, 40+ ms S IN I/aVL/V4/V5/V6] COMPARED TO ECG 12/02/2019 07:40:49 RIGHT BUNDLE-BRANCH BLOCK NOW PRESENT Electronically Signed On 03-04-2023 16:06:01 CDT by Miguel Patrick M.D.
--- NOTE | 2023-03-04 14:08 | ADMGEN ---
This patient, Karel Olvera, was admitted to 3 Med Surg Room 325-01 at 1025. Patient/family oriented to hospital policies and general routines including ID bracelet, bed and alarms, visiting hours, pain management, procedures, bathroom and other care routines, personal items, smoking policy, room service/diet, and visiting hours. Information on how to activate the Rapid Response Team has been discussed. Patient/Family are encouraged to report perceived risks to care and to ask questions if they do not understand what they are told or what they should do.
[2023-03-04] MEDS: LACTATED RINGERS 1,000 ML 125 ML IV CONT (16:27)
[2023-03-04 16:29] LABS: Glucose Point of Care 157 mg/dl (65-105)
[2023-03-04 16:29] LABS: Hematocrit 46.3 % (42.0-52.0); Hemoglobin 15.3 g/dL (14.0-18.0); Mean Corpuscular Hemoglobin 26.8 pg (26-34); Mean Corpuscular Volume 81.2 fl (80-100); Mean Platelet Volume 11.1 fl (7.4-10.4); Platelet Count Result 216 k/mm3 (150-375); Red Cell Distribution Width 14.6 % (11.5-14.5); White Blood Count 12.6 K/mm3 (4.5-10.0)
[2023-03-04] MEDS: oxyCODONE/ACETAMINOPHEN (*CRX) 5-325 MG TABLET 1 TABLET PO (18:55)
[2023-03-04] MEDS: PANTOPRAZOLE SODIUM IV 40 MG VIAL IV PUSH (21:37)
[2023-03-05] MEDS: LACTATED RINGERS 1,000 ML 125 ML IV CONT (02:41)
[2023-03-05 04:43] LABS: Basophils Percent Auto 0.2 % (0.2-1.2); Eosinophils Absolute Auto 0.2 K/mm3 (0-0.3); Eosinophils Percent Auto 1.3 % (0-4.4); Hematocrit 42.8 % (42.0-52.0); Hemoglobin 14.4 g/dL (14.0-18.0); Immature Granulocyte Absolute 0.05 K/mm3 (0.00-0.031); Immature Granulocyte Percent A 0.4 % (0-0.5); Lymphocytes Absolute Auto 1.91 K/mm3 (0.9-3.2); Mean Corpuscular HGB Conc 33.6 g/dl (32-36); Mean Corpuscular Hemoglobin 27.1 pg (26-34); Mean Corpuscular Volume 80.6 fl (80-100); Monocytes Absolute Auto 1.2 K/mm3 (0.1-0.6); Monocytes Percent Auto 9.2 % (2.6-8.5); Neutrophils Absolute Auto 9.4 K/mm3 (1.3-6.7); Neutrophils Percent Auto 73.9 % (45.5-73.1); Platelet Count Result 199 k/mm3 (150-375); Red Blood Count 5.31 M/mm3 (4.6-6.20); Red Cell Distribution Width 14.6 % (11.5-14.5); White Blood Count 12.8 K/mm3 (4.5-10.0)
[2023-03-05 04:55] LABS: Anion Gap 5 mmol/L (8-16); Blood Urea Nitrogen 11 mg/dL (9-20); Calcium 8.4 mg/dL (8.4-10.2); Carbon Dioxide 26 mmol/L (22-30); Chloride 104 mmol/L (98-107); Estimated CRCL calculation 142 ml/min; Estimated Glomerular Filt Rate > 60; Glucose 120 mg/dL (65-110); Potassium 3.9 mmol/L (3.4-5.0); Sodium 135 mmol/L (137-145)
[2023-03-05 04:58] LABS: Cholesterol 193 mg/dL (0-200); HDL Direct 38 mg/dL; Triglycerides 95 mg/dL (<150)
[2023-03-05 05:07] LABS: LDL Cholesterol Direct 149 mg/dL
[2023-03-05 05:23] LABS: Hemoglobin A1C 5.7 % (<5.7)
[2023-03-05 06:00] VITALS: BP 134/78; PULSE 78; RESP 16; TEMP 36.7; O2SAT 99
--- NOTE | 2023-03-05 08:00 | PM.DS ---
DS: Admitting Diagnosis Discharge Date 03/05/2023 Admitting Diagnosis Lactic acidosis Right middle lobe pneumonia nausea and vomiting with hematemesis, possibly marijuana induced cyclic vomiting Alvarado's esophagus DS: Discharge Diagnosis Discharge Diagnosis (1) Acidosis, lactic: Code(s): E87.20 - Acidosis, unspecified Status: Acute Assessment and Plan: Resolved after IV fluids, likely dehydration related. Patient tolerating full diet with no further nausea/vomiting. (2) Pneumonia: Qualifiers: Laterality: right Lung location: middle lobe of lung Pneumonia type: due to unspecified organism Qualified Code(s): J18.9 - Pneumonia, unspecified organism Code(s): J18.9 - Pneumonia, unspecified organism Status: Acute Assessment and Plan: Slight rhonchi right middle/lower lobe posteriorly, no respiratory difficulty and stable vital signs. No oxygen needs. Will discharge on oral antibiotics. (3) Nausea & vomiting: Qualifiers: Vomiting type: hematemesis Qualified Code(s): K92.0 - Hematemesis Code(s): R11.2 - Nausea with vomiting, unspecified Status: Acute Assessment and Plan: Problem resolved, no further nausea or emesis and no need for PRN Zofran/metoclopramide while in hospital. Will discharge with PRN Zofran. (4) Dyslipidemia: Code(s): E78.5 - Hyperlipidemia, unspecified Status: Acute Assessment and Plan: LDL 139, will restart Crestor 5 mg which patient was on previously. (5) Diabetes type 2, controlled: Qualifiers: Diabetes mellitus complication status: without complication Diabetes mellitus termite control representative insulin use: without termite control representative use Qualified Code(s): E11.9 - Type 2 diabetes mellitus without complications Code(s): E11.9 - Type 2 diabetes mellitus without complications Status: Acute Assessment and Plan: HGB A1c 5.7, patient to follow up with Primary care and work on dietary changes, no prescriptions at this time. (6) Esophagitis: Code(s): K20.90 - Esophagitis, unspecified without bleeding Status: Acute Assessment and Plan: Stable H&H during stay (drop from 17 to 14 explained and expected due to IV fluid resuscitation) and no signs of GI bleeding DS: Summary Hospital Course Reason for hospitalization: Patient was admitted to the hospital due to hours of intractable nausea/vomiting with streaking hematemesis with findings of right middle lobe pneumonia on CT scan and lactic acidosis. Hospital Course: Patient was started on IV antibiotics and given IV fluid resuscitation and continuous infusion. Repeat labs show stable H&H and resolved lactic acidosis. Patient had no respiratory distress, no increased oxygen demand and no respiratory complaints. Due to prior history of diabetes (well controlled) and prior CVA we checked lipid panel with borderline elevated LDL and slightly low HDL. We restarted rousuvastatin which patient was previously prescribed but self discontinued years ago. Patient to continue omeprazole twice daily at home and follow up with his PCP in 1-3 weeks. Status at Discharge Functional status at discharge: independent ambulation Overall status at discharge: patient is back to baseline Time Spent with Patient Time attestation: Total time spent providing and/or coordinating discharge services: Time spent: Greater than 30 minutes Exam Narrative: Const:?? General: comfortab le and no acute di stress HENMT:?? Mouth: moist mucou s membranes Eyes:?? General: appearanc e normal, both eye s and all related structures? Pupils : Equal, round and reactive pupils p resent Neck:?? Neck: supple and n o JVD? Lymphatic:
[2023-03-05] MEDS: PANTOPRAZOLE SODIUM IV 40 MG VIAL IV PUSH (08:43)
[2023-03-05] MEDS: AZITHROMYCIN 500 MG/NS 250 ML 500 MG/250 ML BAG 250 MG IVPB (08:43)
[2023-03-05] MEDS: ASPIRIN 81 MG ENTERIC TABLET PO (08:43)
[2023-03-05] MEDS: ROSUVASTATIN 5 MG TABLET PO (08:44)
[2023-03-05] MEDS: AMOXICILLIN/CLAVULANATE K 500-125 MG TAB 1 TABLET PO (10:45)
--- NOTE | 2023-03-12 10:10 | PC.NURSE ---
Blood cx are negative. Dr. Dexter prieto.
== END 2023-03-05 10:45 | disposition home or self-care (01) | DRG 194 ==
LOC: ANHED 06:24 → ANH3MEDSUR 09:13
PROVIDERS: Admitting Provider Internal Medicine; Emergency Provider Emergency Medicine; Visit Provider Nurse Practitioner
DX: J18.9 Pneumonia, unspecified organism (principal); E87.20 Acidosis, unspecified; R11.2 Nausea with vomiting, unspecified; I10 Essential (primary) hypertension; E78.5 Hyperlipidemia, unspecified; K21.9 Gastro-esophageal reflux disease without esophagitis; K20.90 Esophagitis, unspecified without bleeding; E11.9 Type 2 diabetes mellitus without complications; K22.70 Barrett's esophagus without dysplasia; K27.9 Peptic ulcer, site unspecified, unspecified as acute or chronic, without hemorrhage or perforation; M19.012 Primary osteoarthritis, left shoulder; F32.A Depression, unspecified; F12.90 Cannabis use, unspecified, uncomplicated; F41.9 Anxiety disorder, unspecified; Z20.822 Contact with and (suspected) exposure to COVID-19; Z96.653 Presence of artificial knee joint, bilateral; I69.392 Facial weakness following cerebral infarction; Z87.891 Personal history of nicotine dependence; Z79.82 Long term (current) use of aspirin; Z79.02 Long term (current) use of antithrombotics/antiplatelets; Z79.84 Long term (current) use of oral hypoglycemic drugs
CPT/HCPCS: 36415; 71260; 74177; 80048; 80053; 80061; 81001; 82550; 82948; 83036; 83605; 83690; 83735; 83880; 84100; 84484; 85025; 85027; 85610; 85730; 87040; 87086; 87637; 93005; 96361; 96374; 96375; 99285; A9270; C9113; J0456; J0696; J2405; J2765; J7030; J7120; Q9967

== ENCOUNTER 2024-01-03 10:44 | Outpatient (CLI) | payer MEDICARE, SELFPAY ==
--- NOTE | ~2024-01-03 | CT_ITS ---
EXAMINATION:CT lung screening DATE: 01/03/2024 11:02 INDICATION: Personal history of nicotine dependence. Current smoker with 40 pack year history. TECHNIQUE: Computed tomography (CT) of the chest was performed without intravenous contrast. Automate d exposure control and iterative reconstruction technique were employed. The dose-length product (DLP ) was 388.34 mGy-cm. COMPARISON: None. FINDINGS: There is mild atelectasis bilaterally. A calcified right lung nodule and calcified mediasti nal lymph nodes are consistent with old granulomatous disease. No pleural effusion. The heart size is normal. No pericardial effusion. There is mild chronic anterior wedging of multiple thoracic vertebr al bodies. There are bridging endplate osteophytes at multiple levels in the spine, consistent with d iffuse idiopathic skeletal hyperostosis (DISH). There is severe cervical spondylosis. IMPRESSION: 1. Lung-RADS category 1: Negative. Continue annual screening with noncontrast low-dose chest CT in 12 months. Reviewed, dictated and finalized at location E. IMPRESSION: 1. Lung-RADS category 1: Negative. Continue annual screening with noncontrast l ow-dose chest CT in 12 months.
== END 2024-01-03 10:45 ==
LOC: GOSHIMG 10:45
PROVIDERS: PCP Family Medicine; Visit Provider Family Medicine
DX: Z12.2 Encounter for screening for malignant neoplasm of respiratory organs (principal); Z87.891 Personal history of nicotine dependence
CPT/HCPCS: 71271

== ENCOUNTER 2024-01-17 18:47 | Emergency (ER) | payer MEDICARE, SELFPAY ==
[2024-01-17 18:56] VITALS: BP 176/99; PULSE 115; RESP 20; TEMP 36.4; O2SAT 98
--- NOTE | 2024-01-17 21:16 | PC.NURSE ---
pt called for vitals and labwork, no answer
== END 2024-01-18 00:41 | disposition left against medical advice (07) ==
LOC: ANHED 23:47
PROVIDERS: PCP Family Medicine
DX: R11.2 Nausea with vomiting, unspecified (principal)
CPT/HCPCS: 99199

== ENCOUNTER 2024-03-13 00:47 | Day surgery (SDC) | payer MEDICARE, SELFPAY ==
[2024-03-02 08:24] VITALS: BMI 36.0
[2024-03-13 13:00] VITALS: BP 129/89; PULSE 77; RESP 18; TEMP 36.4; O2SAT 96
[2024-03-13] MEDS: LACTATED RINGERS 1,000 ML 150 ML IV CONT (13:09)
[2024-03-13] MEDS: VANCOMYCIN 2,000 MG/NS 500 ML BAG 250 MG IVPB (13:09)
--- NOTE | 2024-03-13 13:32 | WPDANESEPPF ---
Anes - Initial Pre Proc Eval Procedure: Operation Date: 03/13/24 14:00 Proposed Procedures p Esophagogastroduodenoscopy & Colonoscopy - Bruce Thomas MD Date/Time: 03/13/24 13:32 Surgeon: Bruce Thomas MD Pre Op Diagnosis: GERD, Hamlet's Esophagus,Pers. Hx. polyps Patient Data Age: 63 Gender: M Height: 2.01 m Weight: 142.9 kg Last Vital Signs Temp 97.6 F 03/13/24 13:00 Pulse 77 03/13/24 13:00 Resp 18 03/13/24 13:00 BP 129/89 03/13/24 13:00 Pulse Ox 96 03/13/24 13:00 O2 Del Method Room Air 03/13/24 13:00 Allergies Allergy/AdvReac Type Severity Reaction Status Date / Time No Known Allergies Allergy Verified 03/13/24 12:58 Home Medications Medication Instructions Recorded Confirmed Type aspirin 81 mg tablet,delayed 81 mg PO DAILY 90 days #90 tabs 03/05/23 03/13/24 Rx release rosuvastatin 5 mg tablet (Crestor) 5 mg PO DAILY #90 tabs 03/05/23 03/13/24 Rx duloxetine 60 mg capsule,delayed 60 mg PO DAILY 11/29/23 03/13/24 History release (Cymbalta) pantoprazole 40 mg tablet,delayed 40 mg PO BID #60 tabs 02/24/24 03/13/24 Rx release Patient hx anesthesia problems: none Family hx anesthesia problems: none Results Review: All pre-operative results and documents have been reviewed as part of the pre-operative evaluation. [facility] Past Medical History Medical History (Updated 02/24/24 @ 10:57 by Jnena Elam, BERE) Anxiety Arm fracture, left Arthritis CVA (cerebral vascular accident) Depression GERD (gastroesophageal reflux disease) HLD (hyperlipidemia) HTN (hypertension) MRSA (methicillin resistant Staphylococcus aureus) Osteoarthritis of left shoulder PUD (peptic ulcer disease) Skin tag Buttocks, removed TIA (transient ischemic attack) x2 Surgical History Surgical History H/O neck surgery H/O tooth extraction History of open reduction and internal fixation (ORIF) procedure Left arm Hx of appendectomy S/P total knee arthroplasty Bilateral knees Social History Social History Social History: caffeine 4 cups of coffee daily Smoking packs per day: 0.5 Smoking cigarettes per day: 10.0 Smoking status: Current every day smoker Tobacco type: pipe Alcohol intake: never Substance use: current Substance use type: marijuana Other substance usage details: Daily for back pain Do You Feel Safe in your Home?: Yes Lack of Transportation: No Lack of Food: Never True Current Housing: I Have Housing Concerned About Future Housing: No Difficulty Paying Gas/Electric Bills: No Difficulty Paying for Meds: No Currently Unemployed: No Education: High School Diploma/GED Difficulty w/ Childcare or Family Care: No Living arrangements: with family Occupation/Education: retired Gender identity (if verbalized by the patient): Male Sexual Orientation (if Verbalized by the Patient): Straight or Heterosexual Spiritual care concerns: No Agree to blood products: Yes Anes - Eval Final PreProcedure Day of Procedure 03/13/24 13:32 Patient weight: obese Heart: regular rate and rhythm Lungs: clear to auscultation Airway: Mallampati scale class III Neurological: alert and oriented Last oral intake: >/= 8 hours ASA classification: III Emergent: no Anesthetic plan: proceed Anesthesia type and monitoring: general GIVS and standard monitoring Results Review: All pre-operative results and documents have been reviewed as part of the pre-operative evaluation. Informed Consent: The patient's anesthetic plan and its attendant risks and benefits were discussed with the patient/family/POA. Questions were solicited and answers provided to the satisfaction of the patient/family/POA.
--- NOTE | 2024-03-13 13:43 | WPDHPUPDATE1 ---
History and Physical Update Update Date/Time: 03/13/24 13:43 History and Physical has been reviewed, including an updated exam of the patient. There are NO changes in the patient's condition. Risks, benefits, and alternatives have been discussed and questions answered. Patient agrees to proceed with procedure.
[2024-03-13 14:19] VITALS: BP 161/107; PULSE 88; RESP 18; O2SAT 97
--- NOTE | 2024-03-13 14:21 | SUR.OPER ---
EGD START 1352, END 1355 COLONOSCOPY START 1359, END 1418
[2024-03-13 14:29] VITALS: BP 164/82; PULSE 83; RESP 21; O2SAT 100
[2024-03-13 14:39] VITALS: BP 138/97; PULSE 75; RESP 27; O2SAT 100
[2024-03-13 14:49] VITALS: BP 145/99; PULSE 64; RESP 20; O2SAT 100
== END 2024-03-13 15:18 | disposition home or self-care (01) ==
PROVIDERS: PCP Family Medicine; Visit Provider Internal Medicine Gastroenterology
PROC: 0DJ08ZZ Inspection of Upper Intestinal Tract, Via Natural or Artificial Opening Endoscopic (ICD-10-PCS; CPT 43235; principal; 2024-03-13 14:00)
DX: Z12.11 Encounter for screening for malignant neoplasm of colon (principal); D12.3 Benign neoplasm of transverse colon; K63.5 Polyp of colon; K21.9 Gastro-esophageal reflux disease without esophagitis; I10 Essential (primary) hypertension; E78.5 Hyperlipidemia, unspecified; F32.A Depression, unspecified; F41.9 Anxiety disorder, unspecified; Z86.73 Personal history of transient ischemic attack (TIA), and cerebral infarction without residual deficits; Z79.82 Long term (current) use of aspirin; Z87.19 Personal history of other diseases of the digestive system; F17.290 Nicotine dependence, other tobacco product, uncomplicated; F12.90 Cannabis use, unspecified, uncomplicated; E66.9 Obesity, unspecified; Z68.35 Body mass index [BMI] 35.0-35.9, adult
CPT/HCPCS: 45385; 43239; 88305; J2704; J3370; J7120

== ENCOUNTER 2024-10-11 09:48 | Emergency (ER) | payer MEDICARE, SELFPAY ==
[2024-10-11] VITALS (14 sets, daily range): BP systolic 119–218; BP diastolic 76–118; PULSE 56–109; RESP 13–32; TEMP 35.8; O2SAT 94–100
--- NOTE | ~2024-10-11 | CT_ITS ---
EXAMINATION: CT cervical spine w con DATE: 10/11/2024 12:48 INDICATION: Neck abscess. TECHNIQUE: Computed tomography (CT) of the cervical spine was performed with 100 mL Omnipaque 350 int ravenous contrast. Automated exposure control and iterative reconstruction technique were employed. T he dose-length product was 469.95 mGy-cm. COMPARISON: CT cervical spine 08/02/2019 FINDINGS: There is plaque in the proximal internal carotid arteries with 0% stenosis relative to norm al distal artery lumen diameters. Alignment is normal. Vertebral body heights are normal. There is mo derately decreased disc height at C3-C4 and severely decreased disc height at C4-C5. There is severel y decreased disc height from C5-C6 through C7-T1 with interbody fusion. There are changes of posterio r fusion procedure from C5 to C7 with lateral mass screws. There is a laminectomy at C6. At C6, there is a 1.6 x 2.4 cm thick-walled fluid collection extending from the postsurgical bed to the posterior skin. The following disc levels are specifically discussed: C2-C3: There is mild bilateral uncovertebral joint osteoarthritis. There is mild right and severe lef t facet joint osteoarthritis. There is mild left neural foraminal stenosis. There is no central canal stenosis. C3-C4: There is severe right and moderate left uncovertebral joint osteoarthritis. There is severe ri ght and moderate left facet joint osteoarthritis. There is moderate right and mild left neural forami nal stenosis. There is mild central canal stenosis. C4-C5: There is moderate and severe left uncovertebral joint osteoarthritis. There is severe bilatera l facet joint osteoarthritis. There is mild right and moderate left neural foraminal stenosis. There is mild central canal stenosis. C5-C6: There is moderate right and severe left uncovertebral joint hypertrophy. There is no facet earnestine nt hypertrophy. There is mild right and moderate left neural foraminal stenosis. There is mild centra l canal stenosis with posterior decompression. C6-C7: There is severe bilateral uncovertebral joint hypertrophy. There is no facet joint hypertrophy . There is moderate right and mild left neural foraminal stenosis. There is mild central canal stenos is with posterior decompression. C7-T1: There is moderate bilateral uncovertebral joint hypertrophy. There is severe right facet joint osteoarthritis. There is ankylosis of left facet joint with moderate hypertrophy. There is mild bila teral neural foraminal stenosis. There is mild central canal stenosis. IMPRESSION: 1. Severe cervical spondylosis. 2. Anterior and posterior fusion from C5 to T1. 3. C6 laminectomy with thick-walled fluid collection again seen from the postsurgical bed to the post erior skin, consistent with seroma versus abscess. Reviewed, dictated and finalized at location A. GER UNDERWRITING IMPRESSION: 1. Severe cervical spondylosis. 2. Anterior and posterior fusion from C5 to T1. 3. C6 laminectomy with thick-walled fluid collection again seen from the postsu rgical bed to the posterior skin, consistent with seroma versus abscess.
--- NOTE | ~2024-10-11 | CT_ITS ---
EXAMINATION: CTA chest abdomen pelvis DATE: 10/11/2024 11:12 INDICATION: Abdominal pain, nausea and vomiting TECHNIQUE: Computed tomographic angiography (CTA) of the chest, abdomen, and pelvis was performed wit hout and with 100 mL Omnipaque-350 intravenous contrast. Volume-rendered 3D-reconstructions of the ao rta and large arteries were constructed by the technologist on a separate workstation. Automated expo sure control and iterative reconstruction technique were employed. The dose-length product was 2162.6 8 mGy-cm. COMPARISON: CT studies dated 01/03/24 and 01/02/2023 FINDINGS: Chest: Normal variant azygos lobe and fissure. No pneumonia, pulmonary nodules, pulmonary edema or pleural e ffusion. Heart size is normal. No pericardial effusion. Thoracic aorta is normal in caliber with no d issection. No pathologically enlarged thoracic lymphadenopathy. Mild bilateral gynecomastia. Small sl iding-type hiatal hernia. Severe lower cervical spondylosis with C5-C7 posterior spinal fusion with b ilateral vertical seun and lateral mass screw fixation. Moderate thoracic spondylosis with bridging os teophytes at multiple levels consistent with diffuse idiopathic skeletal hyperostosis (DISH). There i s mild anterior wedging of a few mid and lower thoracic vertebral bodies. Abdomen and pelvis: Liver, gallbladder, spleen and pancreas are normal. There are bilateral subcentimeter low-attenuation renal cysts. Bilateral adrenal nodules with characteristic low-attenuation on either the current or prior noncontrast CT consistent with adrenal adenomas the largest on the right measuring 3.9 x 2.4 cm . There is moderate colonic diverticulosis with a sigmoid predominance. There is no adjacent inflamm atory change to suggest diverticulitis. Postoperative change near the tip the cecum likely related to prior appendectomy. No bowel obstruction. Bladder is normal. Very small fat-containing umbilical and left inguinal hernias. No free intraperitoneal gas or fluid. No pathologically enlarged abdominal or pelvic lymphadenopathy. Severe disc height loss at L5-S1. Otherwise mild lumbar spondylosis. There is mild aneurysmal dilation of the distalmost abdominal aorta which measures up to 3.2 cm in di ameter and extending into the bilateral common iliac arteries which measure 3.4 cm in maximal diamete r on the left and 2.6 cm maximal diameter on the right. There is also aneurysmal dilation of the bila teral internal iliac arteries measuring up to 2.1 cm on the right and 2.2 cm on the left. There is no nhemodynamically significant atherosclerotic plaque in the bilateral common and internal iliac arteri es. The more cephalad abdominal aorta is normal in caliber. 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 IMPRESSION: 1. No acute cardiopulmonary disease or acute intra-abdominal/pelvic process. 2. 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 3. Small sliding-type hiatal hernia. 4. Moderate sigmoid diverticulosis. Reviewed, dictated and finalized at location B. UCTION CONTROL CLERK
[2024-10-11 10:32] LABS: Basophils Absolute Auto 0.1 K/mm3 (0.0-0.1); Basophils Percent Auto 0.8 % (0.2-1.2); Eosinophils Absolute Auto 0.2 K/mm3 (0-0.3); Eosinophils Percent Auto 1.3 % (0-4.4); Hematocrit 52.6 % (42.0-52.0); Hemoglobin 18.1 g/dL (14.0-18.0); Immature Granulocyte Absolute 0.03 K/mm3 (0.00-0.031); Immature Granulocyte Percent A 0.2 % (0-0.5); Lymphocytes Absolute Auto 1.75 K/mm3 (0.9-3.2); Lymphocytes Percent Auto 13.8 % (18.3-44.2); Mean Corpuscular HGB Conc 34.4 g/dl (32-36); Mean Corpuscular Hemoglobin 28.4 pg (26-34); Mean Corpuscular Volume 82.4 fl (80-100); Mean Platelet Volume 11.1 fl (7.4-10.4); Monocytes Absolute Auto 1.1 K/mm3 (0.1-0.6); Monocytes Percent Auto 8.4 % (2.6-8.5); Neutrophils Absolute Auto 9.6 K/mm3 (1.3-6.7); Neutrophils Percent Auto 75.5 % (45.5-73.1); Platelet Count Result 245 k/mm3 (150-375); Red Blood Count 6.38 M/mm3 (4.6-6.20); Red Cell Distribution Width 14.3 % (11.5-14.5); White Blood Count 12.7 K/mm3 (4.5-10.0)
--- OUTSIDE RECORDS SUMMARY | 2024-10-11 10:36 | XMS_ITS | Referral Summary ---
Author Organization [facility] Address [address] [place] [address] Care Team Providers Care Computer Mechanic Name Role Phone Graett Zhu MD Primary Care Provider Encounters Date Type Department Care Team Description 08/31/2024 Telephone [facility] Accountable Care Organization [address] [place] [id number] Rosie Hopper CMA Unsuccessful Phone Call 1 ([facility]) from Last 3 Months Allergies No known active allergies Medications aspirin 81 mg enteric coated tablet Take 1 tablet (81 mg total) by mouth every morning Active diphenhydrAMINE-ac etaminophen (TYLENOL PM) 25-500 mg tablet Take 1 tablet by mouth nightly Active rosuvastatin (CRESTOR) 5 mg tabletIndications: Mixed hyperlipidemia Take 1 tablet (5 mg total) by mouth daily 90 tablet 3 07/05/[address] (PROTONIX) 40 mg EC tablet TAKE 1 TABLET BY MOUTH DAILY 100 tablet 2 02/21/[address] (CYMBALTA) 60 mg capsuleIndications :Moderate episode of recurrent major depressive disorder (HCC),Chronic pain syndrome TAKE 1 CAPSULE BY MOUTH DAILY 30 capsule 10/05/[address] (CYMBALTA) 60 mg capsuleIndications :Moderate episode of recurrent major depressive disorder (HCC),Chronic pain syndrome TAKE 1 CAPSULE BY MOUTH DAILY 30 capsule 11 11/16/19 24 025 Discontinued Active Problems Problem Noted Date Diagnosed Date Chronic pain syndrome 07/05/2023 Aspiration pneumonia of right middle lobe (CMS/H CC) 03/15/2023 Hospital discharge follow-up 03/15/2023 Assessment & Plan (03/15/2023 11:07 AM CDT): Initially curious as to why Augmentin chosen, but he is improving clinically so will leave it be for now If any worsening in symptoms, we will switch to Levaquin and steroid; patient aware Patient states he will not go back to [facility]; he will go to [facility] if he needs to go to ER (reminded him that EMS will take him to nearest facility) We may need an EGD; probably will send to [place] for that Repeating cxr next week to gauge resolution Continue and finish Augmentin Right rotator cuff tendinitis 07/09/2022 Assessment & Plan (10/15/2022 3:50 PM BLAST [employer] AUXILI[employer] SUPERVISOR): Patient developed recurrent cuff tendinitis of the right shoulder. After reviewing the treatment options elected undergo a cortisone injection today. He tolerated the procedure well. Assessment & Plan (07/09/2022 3:48 PM CDT): Patient's history exam is consistent with rotator cuff tendinitis with impingement. After reviewing the treatment options patient elected undergo a cortisone injection today. He tolerated the procedure well. Class 3 severe obesity due t o excess calories with serious comorbidity and body mass index (BMI) of 40.0 to 44.9 in adult 07/09/2022 Assessment & Plan (06/07/2023 11:04 AM CDT): Healthy, low carbohydrate lifestyle and exercise for 150min/week recommended Assessment & Plan (10/16/2022 5:40 PM [employer] F[employer]UXILI[employer] SUPERVISOR): BMI Follow-up includes: nutrition counseling, exercise counseling and education provided. Assessment & Plan (07/09/2022 3:49 PM CDT): Patient's current weight provides with a BMI over 41. Would highly encouraged him to work on a graduated low-impact exercise program in conjunction with proper dieting. Enlarged prostate 03/26/2022 Overview (03/26/2022): Added automatically from request for surgery [id number] Primary osteoarthritis of left shoulder 01/30/20 Assessment & Plan (10/15/2022 3:50 PM [employer]IL[employer] SUPERVISOR): Patient has known arthritis of the shoulder additional cuff tendinitis. After reviewing the treatment options elected undergo a cortisone injection today. He tolerated the procedure well. Plain films he is known to have advanced arthritis of the shoulder. He is not getting lasting relief with the injections he may need to consider shoulder replacement surgery Assessment & Plan (07/09/2022 3:47 PM CDT): Patient has advanced arthritis of the left shoulder is likely facing shoulder replacement surgery in the future. Unfortunately the patient is a poor operative candidate having multiple medical comorbidities and complications with prior surgery. As such after reviewing the treatment options elected undergo a cortisone injection today. He tolerated the procedure well. Assessment & Plan (01/29/2022 3:04 PM CDT): Patient has advanced arthritis of left shoulder with rotator cuff tendinitis and impingement. He is likely to be a poor operative candidate as a smoker who had complicated cervical spine surgery with methicillin resistance Staph aureus requiring three additional operations to eradicate the infection and three years of antibiotics to keep it suppressed. The patient on review of the options elected undergo a cortisone injection today. He tolerated the procedure well. He May 1 day require shoulder replacement surgery but would highly encouraged him to discontinue smoking. Encounter for medical examination to establish c are 01/23/2022 Assessment & Plan (01/23/2022 5:09 PM CDT): A(n) initial well visit to establish care has been performed today. Karel Mcduffiesandylink is not up to date on screening tests. He is in need of Prostate screening and Colon cancer screening- will obtain old records. He is not up to date on needed preventative vaccinations; He is in need of Tdap/Td, Pneumonia (Prevnar-13 or Pneumovax-23) and Zoster. Will work on obtaining records from outside hospital. We will need to be addressed and name so that we can submit the form to them. Referrals made to relevant specialist Refilled omeprazole Labs as ordered Spinal stenosis of cervical region 04/08/2020 Overview (04/08/2020): Added automatically from request for surgery [id number] Disorder of intervertebral d isc at C4-C5 level with myelopathy 04/08/2020 Overview (04/08/2020): Added automatically from request for surgery [id number] Cervical osteophyte 04/08/2020 Overview (04/08/2020): Added automatically from request for surgery [id number] S/P cervical spinal fusion 04/08/2020 Overview (04/08/2020): Added automatically from request for surgery [id number] Infection of cervical spine ([facility]) 08/03/2019 Assessment & Plan (08/03/2019 12:27 PM [employer] SUPERVISOR): Posterior cervical fusion from C5-7 Cervical spine infection Recommended treatment is a direct admit to [facility] in a planned I and D of the posterior cervical wound on August 04, 2019. I will also consult Dr. Akbar Becker for Infectious Disease. Dr. Ramirez previously followed the patient in his last hospitalization, but he fired the patient due to lack of follow-up in the outpatient setting. The patient was unable to afford his co-pays because Dr. Ramirez was out of network and he could not before the follow-up visits with regularity that Dr. Ramirez requested. Abnormal EKG 05/25/2019 Anxiety 05/25/2019 Assessment & Plan (06/07/2023 11:04 AM CDT): Anxiety and depression have worsened. Will trial Duloxetine 30 mg daily, education provided Chest pain 05/25/2019 Dyspnea on exertion 05/25/2019 Tobacco dependence syndrome 05/25/2019 MRSA bacteremia 04/24/2019 Sepsis 04/22/2019 Acute cystitis without hematuria 04/22/2019 Syncope 04/21/2019 History of stroke 04/21/2019 Depression 04/21/2019 Assessment & Plan (06/07/2023 10:59 AM CDT): Anxiety and depression have worsened. Will trial Duloxetine 30 mg daily, education provided GERD (gastroesophageal reflux disease) 9 Assessment & Plan (06/07/2023 10:56 AM CDT): Symptoms worsening, has hx of Alvarado's esophagus. Trial switching from Omeprazole to Pantoprazole. Referral to GI placed. Spinal stenosis, cervical region 02/21/2019 Overview (02/21/2019): Added automatically from request for surgery [id number] Cervical disc disorder at C6-C7 level with myelo tabatha 02/21/2019 Overview (02/21/2019): Added automatically from request for surgery [id number] Assessment & Plan (03/01/2023 1:19 PM CDT): Karel Olvera has a mobility limitation that significantly impairs ability to participate in one or more mobility-related activities of daily living (MRADLs) such as toileting, feeding, dressing, grooming, and bathing in customary locations in the home. Patient's mobility limitation cannot be sufficiently resolved by the use of an appropriately fitted cane. Use of an electric wheelchair will significantly improve the patient's ability to participate in MRADLs and the patient will use it on a regular basis in the home. Patient has a caregiver who is available, willing, and able to provide assistance with the wheelchair. Assessment & Plan (02/20/2020 2:49 PM CDT): Assessment: Status post posterior cervical fusion C5-7 with cervical myelopathy Bilateral shoulder degenerative joint disease left worse than right Plan: Due to the patient's difficulty with balance and upper extremity weakness I am going to order a CT scan of the cervical spine to evaluate the status of the fusion and determine if there is any lucency surrounding his hardware or new problem at a juxtafusional level. He is following up with his general orthopedic at the beginning of March for his shoulders. He is to remain on his Bactrim and we will order blood work in the next couple of weeks to monitor his infection, since he had an elevated sed rate. Assessment & Plan (10/25/2019 10:38 AM [employer]IL[employer] SUPERVISOR): Healing posterior cervical fusion C5-7, performed on March 27, 2019 Healing cervical wound infection-prior I and D's were performed on August 04, 2019 and April 23, 2019 Recommended treatment is continue observation. Patient is to follow up in 6 weeks for re-evaluation and x-rays. I will check his blood work again today to see if there's been any interval change. He is to continue taking the Bactrim. I'm also going to check his vitamin-D level in order to make sure this is at appropriate level to help him with healing. I am also going to do a rheumatologic workup and I will call him with regard to the results. Additionally I will refer him to Dr. Mcfarland for his left shoulder pain. I'm going to start him on Mobic as well to help him with his pain in his left shoulder and hands. Osteophyte of cervical spine 02/21/2019 Overview (02/21/2019): Added automatically from request for surgery [id number] Cervical disc disorder with myelopathy of mid-cervical region 01/18/2019 Assessment & Plan (03/20/2020 10:16 AM CDT): Assessment Status post C5-C7 posterior cervical fusion with complication of deep wound infection. Severe C3-4 and C4-5 spinal stenosis with progression of symptoms of ataxia and shoulder pain and some weakness Plan Due to his progression of myelopathic symptoms I recommend anterior partial vertebrectomy and fusion C3-C5. I reviewed the case with Alvin to be sure about the role levels Assessment & Plan (12/06/2019 9:58 AM CDT): Assessment: Status post cervical laminectomy with posterior lateral mass screws from C5-7 performed on March 27, 2019 Incision and drainage performed on April 23, 2019 and August 04, 2019 Plan: Recommended treatment is follow up as needed. The patient is going to let me know the status of his recent testing with his primary care physician. He should continue to take the Bactrim daily. Assessment & Plan (09/20/2019 10:33 AM [employer]ILI[employer] SUPERVISOR): Healing posterior cervical fusion C5-7 Cervical wound infection, incision and drainage on April 23, 2019 and August 04, 2019 Recommended treatment would be for the patient to continue on his Bactrim twice daily. He is also to get lab work done today I'm recommending as CBC, CRP, ESR, and BMP. He is to follow up in 1 month. Assessment & Plan (08/22/2019 9:41 AM [employer]UXILI[employer] SUPERVISOR): Healing posterior cervical fusion from C5-7 Cervical spine wound infection, incision and drainage on April 23, 2019 and August 04, 2019 [place] were removed in office today. I also cleaned the incision where there was the fibrinous area an open area of the incision. I instructed him on how to clean it and recommended that he do wet to dry dressings. He is also to clean the area with a Q-tip removing any of the fibrinous tissue so that it is healthy granulation tissue. He is to follow up in 1 week for re-evaluation of the incision and healing status. He is to continue the oral antibiotics. Assessment & Plan (07/07/2019 10:41 AM CDT): Healing posterior cervical fusion from C5-7 on March 27, 2019 Prior history of sepsis and deep wound infection following posterior cervical fusion I and D performed on April 23, 2019 Recommended treatment is follow up in 6 weeks for re-evaluation and x-ray. He is to begin some light physical therapy with Dr. Schreiber 2 to 3 times a week over the next 6 weeks. If he has any problems he is to give the office a call. Assessment & Plan (05/30/2019 10:43 AM CDT): C5-6 and C6-7 posterior cervical fusion Cervical myelopathy which affects his left arm and hand Cervical wound infection Plan recommended treatment is for the patient follow-up in month for re- evaluation x-rays. I printed up the operative reports for doctor page for his review. If they need any further medical records from our office we would be happy to provide them an effort to continue to provide seamless care. If Dr. Page has any questions he may call our office. The patient is to adhere to his postoperative restrictions. Assessment & Plan (05/16/2019 9:18 AM CDT): Assessment Healing cervical fusion complicated by methicillin resistant Staph infection currently being treated with IV vancomycin Plan Observation. The wound continues to improve with only minimal drainage. He will return in 2 weeks for x-ray Assessment & Plan (02/02/2019 2:49 PM CDT): Assessment Cervical myelopathy with spinal cord compression due to spinal stenosis from bony overgrowth at C5-6 and C6-7 Plan Due to the auto fusion at C5-6 I recommend posterior decompressive cervical laminectomy from C5-C7 lateral mass fixation and fusion. I went over the procedure with him using anatomical models outlined risks nature and he understands Assessment & Plan (01/18/2019 10:20 AM CDT): The patient has developed weakness within the last several months along with balance disturbance. The patient has already had a CT scan and an MRI performed in February 2018. Due to the osteophytes and bony degenerative changes I am recommending a CT scan of the cervical spine and then follow up with Dr. Kirkland for further evaluation and surgical planning. If an MRI would be needed prior to surgery could always order it prior to scheduling surgery. When reviewing the prior scans the CT scan provided more detail regarding his cervical spine pathology and would be better for determining surgical levels. I am calling him in a Updater Dosepak as well. Resolved Problems Problem Noted Date Diagnosed Date Resolved Date Alvarado's esophagus 06/07/2023 06/07/20 Immunizations Name Administration Dates Next Due Influenza, Quadrivalent, Hig h Dose, Preservative Free, Intrr 07/05/2023 Influenza, Unspecified 06/07/2023(Deferr ed: Patient Refused),09/13/2022(Deferred: Patient Refused),09/13/2021(Deferred: Patient Refused),09/13/2021(Deferred: Patient Refused),09/13/2020(Deferred: Patient Refused) Social History Tobacco Use Types Packs/Day Years Used Date Smoking Tobacco: Former Cigarettes 1 46.7 1 976 - 05/30/2022 Passive Smoke Exposure: Never Smokeless Tobacco: Never Tobacco Cessation:Counseling Given: Not Answered Comments:Previously 3 packs per day, now down to 1 packs per day trying to quit. Alcohol Use Standard Drinks/Week Comments No 0 (1 standard drink = 0.6 oz pur e alcohol) AUDIT-C Answer Date Recorded Q1: How often do you have a drink containing alcohol? Never 07/05/2023 Q2: How many drinks containi ng alcohol do you have on a typical day when you are drinking? Patient does not drink Q3: How often do you have si x or more drinks on one occasion? 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 on file Not on file Not on file Last Filed Vital Signs Vital Sign Reading Time Taken Comments Blood Pressure 118/84 07/05/2023 3:02 PM CDT Pulse 84 07/05/2023 3:02 PM CDT Temperature 36.1 ??C (97 ??F) 07/05/2023 3:02 PM CDT Respiratory Rate 17 07/05/2023 3:02 PM CDT Oxygen Saturation 93% 07/05/2023 3:02 PM CDT Inhaled Oxygen Concentration - - Weight 160.1 kg (352 lb 14.4 oz) 07/05/2023 3:02 PM CDT Height 200.7 cm (6' 7 ) 07/05/2023 3:02 PM CDT Body Mass Index 39.76 07/05/2023 3:02 PM CDT Plan of Treatment Not on file Medical Devices Implanted Type Area Occupational Medicine Officer Device Identifier Shelf Expiration Date Model / Serial / Lot Screw Bone Biased Angle L12 Mm Od3.5 Mm Cephelad Caudal Nonsterile Posterior Occipital Cervical Thoracic System 3500 Series - [id number] Implanted:Qty: 2 on 03/27/2019 by Mike Kirkland MD at [facility] N/A: Spine Cervical Core Link [id number] / / Core Link [id number] [place] 3.5mm 45mm Line Prebent Abraham Spinal Nonsterile 3500 Series - [id number] Implanted:Qty: 2 on 03/27/2019 by Mike Kirkland MD at [facility] N/A: Spine Cervical Core Link [id number] / / Screw Set Spinal 3500 Series - [id number] Implanted:Qty: 6 on 03/27/2019 by Mike Kirkland MD at [facility] N/A: Spine Cervical Core Link [id number] / / Screw Bone Biased Angle L14 Mm Od3.5 Mm Cephelad Caudal Nonsterile Posterior Occipital Cervical Thoracic System 3500 Series - [id number] Implanted:Qty: 4 on 03/27/2019 by Mike Kirkland MD at [facility] N/A: Spine Cervical Core Link [id number] / / Explanted Type Area Occupational Medicine Officer Device Identifier Shelf Expiration Date Model / Serial / Lot Adjustable Drill 3.5 X 1 Implanted:Qty: 1 Explanted:Qty: 1 on 03/27/2019 at [facility] N/A: Spine Cervical Core Link [id number] / / Description:Item documented as one time implant on implant screen by RN. Item listed in EPIC under supply screen, so angle entered on supply screen for charging, and left implant screen items as non-chargeable Procedures Procedure Name Priority Date/Time Associated Diagnosis Comments PSA SCREEN Routine 06/07/2023 10:38 AM CDT Enlarged prostate CT LUNG CANCER SCREENING Schedule Routine, Read Routine (OP Routine) 07/13/2022 5:41 PM CDT History of nicotine dependence HEPATITIS C ANTIBODY Routine 01/22/2022 3:05 PM CDT Need for hepatitis C screening test CT ABDOMEN PELVIS W CONTRAST ED 04/21/2019 8:56 AM CDT HM COLONOSCOPY Routine 03/25/2018 from Last 3 Months or Most Recently Relevant to Health Maintenance Results * PSA screen (06/07/2023 10:38 AM CDT) PSA-Total 1.79 <=5.40 ng/mL [facility]SH MOYA Comment: Interpretive Data ?AGE ? SEX ?REFERENCE INTERVAL 0 minutes-150 years ?Female ?None 0 minutes-49 years ? Male ?None ? 50-59 years ? Male ?0-3.90 ? 60-69 years ? Male ?0-5.40 ? 70-79 years ? Male ?0-6.20 ? 80-150 years ?Male ?0-6.20 The [employer] PSA Total assay procedure was used. Results from different manufacturers or methods may not be comparable. Serial testing should be performed using the same method. Current interpretive data last revised 22. Blood 06/07/2023 10:3 8 AM CDT 06/07/2023 2:28 PM CDT us Tete Bettencourt RESEARCH AIDE LAB BLOOD ORDERABLES Final Resul t Performing Organization Address City/State/[facility] Co de Phone Number ASH [phone] Tracie Bui Department [place] [address] * CT Lung Cancer Screening (07/13/2022 5:41 PM CDT) Anatomical Region Laterality Modality Chest N/A Computed Tomogra phy 07/13/2022 5:52 PM CDT Narrative 07/14/2022 6:44 AM CDT EXAM DESCRIPTION: ?? CT LUNG CANCER SCREENING REASON FOR STUDY: Screening CT of the chest in a ?? former ??smoker with a ??44 ?? pack year smoking history. Additional history: None. TECHNIQUE: Low dose CT scan of the chest was performed without intravenous contrast using helical scanning technique. The exam extends from the lung apices through the lung bases. Automatic exposure control was used as a dose optimization technique. NOTE: This study was performed for the specific purposes of lung cancer screening and is not an alternative to diagnostic chest CT. RADIATION DOSE: CT dose index volume (CTDIvol) = ?? 2.18 ??mGy COMPARISON: ?? 04/21/2019 FINDINGS: SMOKING RELATED LUNG DISEASE: ?? There are mild emphysematous changes of lungs with scattered mild subsegmental atelectasis and scarring. ??There is no definite evidence of a pneumothorax. ??The central airways are grossly patent. ?? There is scattered mild bronchial wall thickening with scattered mild mucous plugging, which is concerning for mild acute or chronic bronchitis/bronchiolitis. ??There is no definite evidence of focal consolidation or pleural effusion. ??There are scattered calcified granulomas noted. LUNG NODULES: ?? There is a subpleural 0.3 cm right upper lobe pulmonary nodule (axial image 43). ??There is a 0.4 cm right upper lobe pulmonary nodule (axial image 68). ??There is a 0.4 cm right lower lobe pulmonary nodule (axial image 166). ??There is a 0.2 cm left upper lobe pulmonary nodule (axial image 50). OTHER: ?? The visualized portion of thyroid gland is grossly unremarkable. ??The heart size is normal. ??There is a trace amount of pericardial fluid noted, which may be physiologic. ??There are mild atherosclerotic changes of the thoracic aorta. There is no definite unenhanced CT evidence of mediastinal, hilar, or axillary lymphadenopathy. ??There are scattered prominent subcentimeter mediastinal lymph nodes noted with the largest measuring 0.9 cm in the subcarinal region (axial image 134). ??Calcified mediastinal lymph node is noted. There is a stable right adrenal nodule measuring 3.4 cm demonstrating attenuation characteristics compatible with a benign adrenal adenoma, therefore no follow-up is recommended. ??There is a stable left adrenal nodule measuring 2.2 cm demonstrating attenuation characteristics compatible with a benign adrenal adenoma, and therefore no follow-up is recommended. There is a mild dextroscoliotic curvature of the spine with degenerative changes. IMPRESSION: ?? 1. ?? Scattered small pulmonary nodules with the largest measuring up to 0.4 cm. 2. ?? Mild emphysematous changes of lungs with scattered mild subsegmental atelectasis and scarring. 3. ?? Scattered mild bronchial wall thickening with scattered mild mucous plugging, which is concerning for mild acute or chronic bronchitis/bronchiolitis. Lung-RADS v1.1 category ??2: Benign appearance or behavior. Recommendation: ??Continue annual screening low-dose chest CT in 12 months. THIS IS AN ELECTRONICALLY VERIFIED FINAL REPORT 07/14/2022 6:44 AM - Electronically signed by ??Jesi Quintana D.O. PS: PS D: ??07/14/2022 6:44 AM T: ??07/14/2022 6:44 AM Report ID: [id number] Reading Location: ??[id number] Procedure Note Jesi Quintana, DO - 07/14/2022 EXAM DESCRIPTION: CT LUNG CANCER SCREENING REASON FOR STUDY: Screening CT of the chest in a former smoker with a44 pack year smoking history. Additional history: None. TECHNIQUE: Low dose CT scan of the chest was performed without intravenous contrast using helical scanning technique. The exam extends from the lung apices through the lung bases. Automatic exposure control was used as adose optimization technique. NOTE: This study was performed for the specific purposes of lung cancer screening and is not an alternative to diagnostic chest CT. RADIATION DOSE: CT dose index volume (CTDIvol) = 2.18 mGy COMPARISON: 04/21/2019 FINDINGS: SMOKING RELATED LUNG DISEASE: There are mild emphysematous changes oflungs with scattered mild subsegmental atelectasis and scarring. There is no definite evidence of a pneumothorax. The central airways are grosslypatent. There is scattered mild bronchial wall thickening with scattered mildmucous plugging, which is concerning for mild acute or chronic bronchitis/bronchiolitis. There is no definite evidence of focal consolidation or pleural effusion. There are scattered calcifiedgranulomas noted. LUNG NODULES: There is a subpleural 0.3 cm right upper lobe pulmonarynodule (axial image 43). There is a 0.4 cm right upper lobe pulmonary nodule(axial image 68). There is a 0.4 cm right lower lobe pulmonary nodule (axialimage 166). There is a 0.2 cm left upper lobe pulmonary nodule (axial image50). OTHER: The visualized portion of thyroid gland is grossly unremarkable.The heart size is normal. There is a trace amount of pericardial fluid noted, which may be physiologic. There are mild atherosclerotic changes of the thoracic aorta. There is no definite unenhanced CT evidence of mediastinal, hilar, oraxillary lymphadenopathy. There are scattered prominent subcentimeter mediastinal lymph nodes noted with the largest measuring 0.9 cm in the subcarinalregion (axial image 134). Calcified mediastinal lymph node is noted. There is a stable right adrenal nodule measuring 3.4 cm demonstrating attenuation characteristics compatible with a benign adrenal adenoma, therefore no follow-up is recommended. There is a stable left adrenalnodule measuring 2.2 cm demonstrating attenuation characteristics compatible witha benign adrenal adenoma, and therefore no follow-up is recommended. There is a mild dextroscoliotic curvature of the spine with degenerative changes. IMPRESSION: 1. Scattered small pulmonary nodules with the largest measuring up to0.4 cm. 2. Mild emphysematous changes of lungs with scattered mild subsegmental atelectasis and scarring. 3. Scattered mild bronchial wall thickening with scattered mild mucous plugging, which is concerning for mild acute or chronic bronchitis/bronchiolitis. Lung-RADS v1.1 category 2: Benign appearance or behavior. Recommendation: Continue annual screening low-dose chest CT in 12 months. THIS IS AN ELECTRONICALLY VERIFIED FINAL REPORT 07/14/2022 6:44 AM - Electronically signed by Jesi Quintana D.O. PS: PS Report ID: [id number] Reading Location: [place] [address] Garett Zhu MD IMG CT PROCEDURES Final Res ult * Hepatitis C antibody (01/22/2022 3:05 PM CDT) Hep C Ab Nonreactive Nonreactive [facility] Comment: Interpretive Data Nonreactive: Antibodies to HCV not detected. Does NOT exclude the possibility of recent exposure to HCV. Equivocal: Equivocal for HCV antibodies. Supplemental molecular testing will be automatically performed to determine infection status in accordance with current CDC screening recommendations. ?? Reactive: Positive for HCV antibodies. ??This may represent current or past HCV infection. Supplemental molecular testing will be automatically performed to determine ??current infection status in accordance with current CDC screening recommendations. Interpretive data was last revised on 2019. Blood 01/22/2022 3:05 PM CDT 01/22/2022 6:58 PM CDT us Garett Zhu MD LAB MICROBIOLOGY - [place] [id number] Tracie Hao Department [place] [address] * CT Abdomen Pelvis W Contrast (04/21/2019 8:56 AM CDT) Anatomical Region Laterality Modality Body N/A Computed Tomogra phy 04/21/2019 9:13 AM CDT Impressions 04/21/2019 9:20 AM CDT 1. ??No acute findings. 2. ??Bilateral indeterminate adrenal nodules. ??Correlation with any available prior outside imaging recommended. Electronically signed by: ANGEL MATTHEWS MD Narrative 04/21/2019 9:20 AM CDT EXAM: ??CT ABDOMEN AND PELVIS WITH CONTRAST HISTORY: ??Abdominal tenderness following blunt trauma. TECHNIQUE: CT abdomen and pelvis was performed following intravenous administration of Optiray 350 contrast material. ??Oral contrast was not administered. COMPARISONS: No relevant priors. FINDINGS: Lung bases: Unremarkable. Liver: Unremarkable. Gallbladder/biliary:Unremarkable. Spleen: Unremarkable. Adrenal glands: Right adrenal 3.4 cm nodule, indeterminate. ??Small left adrenal nodule. Pancreas: Unremarkable. Kidneys: No renal stones or hydronephrosis. Bowel: No bowel obstruction or acute inflammatory changes. ??There is sigmoid diverticulosis. ??No acute diverticulitis. ??Status post appendectomy. Vascular/aorta: Normal caliber abdominal aorta. ??Mild fusiform dilatation of the celiac axis. ??Mild multifocal atherosclerotic disease. Lymph nodes: No adenopathy. Peritoneum: Unremarkable. ??No free fluid. Bladder: Unremarkable. Reproductive: Mildly enlarged prostate. Abdominal wall: No hernia identified. Osseous structures: No destructive bone lesions. Procedure Note Angel Matthews MD - 04/21/2019 EXAM: CT ABDOMEN AND PELVIS WITH CONTRAST HISTORY: Abdominal tenderness following blunt trauma. TECHNIQUE: CT abdomen and pelvis was performed following intravenous administration of Optiray 350 contrast material. Oral contrast was not administered. COMPARISONS: No relevant priors. FINDINGS: Lung bases: Unremarkable. Liver: Unremarkable. Gallbladder/biliary:Unremarkable. Spleen: Unremarkable. Adrenal glands: Right adrenal 3.4 cm nodule, indeterminate. Small left adrenal nodule. Pancreas: Unremarkable. Kidneys: No renal stones or hydronephrosis. Bowel: No bowel obstruction or acute inflammatory changes. There is sigmoid diverticulosis. No acute diverticulitis. Status post appendectomy. Vascular/aorta: Normal caliber abdominal aorta. Mild fusiform dilatation of the celiac axis. Mild multifocal atherosclerotic disease. Lymph nodes: No adenopathy. Peritoneum: Unremarkable. No free fluid. Bladder: Unremarkable. Reproductive: Mildly enlarged prostate. Abdominal wall: No hernia identified. Osseous structures: No destructive bone lesions. IMPRESSION: 1. No acute findings. 2. Bilateral indeterminate adrenal nodules. Correlation with any available prior outside imaging recommended. Electronically signed by: ANGEL MATTHEWS MD Alejandro Perla MD IMG CT PROCEDURES Final Resu lt * HM COLONOSCOPY (03/25/2018) Historical Provider HEALTH MAINTENANCE Final Result from Last 3 Months or Most Recently Relevant to Health Maintenance Insurance MEDICARE SOLUTIONS * Guarantor: Karel Olvera Account Type Relation to Patient Date of Phone Billing Address Personal/Family Self 1960 [address] [place] [address] [place] [id number] [employer] MEDICARE PPO MED[employer]ARE SOLUTIONS Advance Directives For more information, please contact: [phone] * Full Code (Latest Code Status on File) Date Activated Date Inactivated Comments 08/03/2019 4:08 PM 08/07/2019 4:39 PM * Full Code Date Activated Date Inactivated Comments 04/25/2019 1:20 PM 04/27/2019 2:59 PM * Full Code Date Activated Date Inactivated Comments 04/21/2019 12:40 PM 04/25/2019 6:28 AM * Full Code Date Activated Date Inactivated Comments 03/27/2019 1:21 PM 03/28/2019 2:19 PM * Full Code Date Activated Date Inactivated Comments 04/19/2018 12:38 AM 04/19/2018 8:23 PM Care Teams Computer Mechanic Relationship Specialty Start Date End Date Garett Zhu MD [address] [place] [id number] PCP - General Family Medicine 01/08/22
--- OUTSIDE RECORDS SUMMARY | 2024-10-11 10:36 | XMS_ITS | Encounter Summary ---
Author Organization [facility] Healthcare Address [address] [place] [address] Care Team Providers Care Ore Puncher Name Role Phone Bro Hughes MD Primary Care Provider [phone] Garett Zhu MD Primary Care Provider [phone] Cynthia Ayers MA Unavailable [phone] Reason for Visit * Reason Onset Date Comments covid screening 03/18/2020 lm for the pt wi th ct info Encounter Details Date Type Department Care Team (Late st Contact Info) Description 03/18/2020 Telephone [facility] [address] [place] [address] Ondina Ortiz [place] covid screening (lm for the pt with ct info) Social History Tobacco Use Types Packs/Day Years Used Date Smoking Tobacco: Every Day Cigarettes 0.5 44 Started: 01/1975; Last attempted to quit: 01/2019 Smokeless Tobacco: Never Comments:Previously 3 packs per day, now down to 0.5 packs per day trying to quit. 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 Gender Identity Not on file Sexual Orientation Not on file Occupation Industry Job Start Date Job End Date DISABLED Not on file Not on file Not on file documented as of this encounter Plan of Treatment Not on file documented as of this encounter Visit Diagnoses Not on filedocumented in this encounter Additional Health Concerns Infection Onset Date Last Indicated Resolved Time MRSA 04/21/2019 08/04/2019 04/30/2021 5:00 AM CDT documented as of this encounter Care Teams Ore Puncher Relationship Specialty Start Date End Date Bro Hughes MD [address] [place] [address] PCP - General 02/21/20 01/07/22 Garett Zhu MD [address] [place] [address] PCP - General Family Medicine 01/08/22 Cynthia Ayers MA [address] [place] [address] [facility] Health Counselor 09/01/22 09/02/22 documented as of this encounter
--- OUTSIDE RECORDS SUMMARY | 2024-10-11 10:36 | XMS_ITS | Patient Health Record ---
Author Organization [facility] Address [address] [place] [address] Care Team Providers Care Computer Graphic Designer Name Role Phone Janice Parker N.P. Primary Care Provider Gary carolinephi Vernon Caba Unavailable [phone] Reason For Referral No Information Medications Medication SIG (Take, Route, Fr equency, Duration) Notes Start Date End Date Status Omeprazole 40 MG 1 capsule 30 minutes before morning meal Orally twice a day Active Aspir-81 Active Septra DS 800-160 MG 1 tablet Orally Twi ce a day for 10 day(s) Active Social History Tobacco Use: Social History Observation Description Date Details (start date - stop date) Current Smoker NA - NA Drugs Question Answer Notes Have you used drugs other th an those for medical reasons in the past 12 months? Yes pt uses marijuana every day Smoking Question Answer Notes Are you a: Current smoker 1/2 ppd Plan Of Treatment No Information Insurance Providers Payer Name Payer Address Payer Phone Subscriber Number Group Number Insured Name Patient Relationship to Insured Coverage Start Date Coverage End Date [employer] Medicare Value HMO [address] [address] [place] [address] [id number] Karel Cole Self - patient is the insured Medical (General) History Medical History History ICD Code CVA 2014 Surgical History Surgery Date(Month/Year)
--- OUTSIDE RECORDS SUMMARY | 2024-10-11 10:36 | XMS_ITS | CONTINUITY OF CARE DOCUMENT ---
Author Name sea osei Address Unknown Organization [facility] Address [address] [place] [address] Phone [phone] Care Team Providers Care Zigzag Topstitcher Name Role Phone Taina BENSON, Ru Unavailable Eren Allan MD Unavailable [phone] Esteban Cano MD Unavailable PROBLEMS Condition Status Date Provider Notes Abnormal EKG active Ru Her MD Tobacco abuse active Ru Her MD Syncope active Ru Her MD Anxiety active Ru Her MD Hx of Stroke active Ru Her MD Dyspnea on exertion active Ru Her MD Chest pain active Ru Her MD Cardiology examination active Ru Her MD ENCOUNTERS Date Type Provider Location Encounter Diag nosis - In-person encounter Office Visit Ru Her MD [place] Cardiology examinationChest painDyspnea on exertionHx of StrokeAnxietySyncopeTobacco abuseAbnormal EKG VITAL SIGNS Date Observation Value Provider Body Mass Index (Ratio) 36.05 kg/m2 Imelda Her MD blood pressure, cuff size regular Cy renaldo Francois blood pressure, diastolic 90 mm[Hg] Usman Francois blood pressure, systolic 150 mm[Hg] Anni thia Francois oxygen saturation, oximetry 97 % Di Francois respiratory rate E&M 16 /min Di Francois pulse rate 94 /min Di maza height E&M 78 [in_i] Di maza weight E&M 312 [lb_av] Di maza ALLERGIES No Known Drug Allergies HISTORY OF MEDICATION USE Medication Status Instructions Dates Provider Indications Com ments OMEPRAZOLE 40 MG ORAL CAPSULE DELAYED RELEASE active take 1 tab daily Di Francois CYMBALTA 60 MG ORAL CAPSULE DELAYED RELEASE PARTICLES active take 1 tab daily Di Alessandro PLAVIX 75 MG ORAL TABLET active take 1 tab daily Di Francois SOCIAL HISTORY Date Observation Value Provider drug use, illicit, d rug of choice marijuana Ru Her MD drug use yes Ru Her MD alcohol use no Ru Her MD social history E&M S moking History: P atadarsh currently smokes every day. P atadarsh has been counseled to quit. Ru Her MD social history reviewed E&M revi ewed - no changes required Ru Her MD smoking/tobacco cess ation, patient education and counseling yes Ru Her MD number of years as a smoker 44 a Di Francois smoking history, tot al pack/day 1/2 PPD Di Francois cigarette use yes Di quiñonez smoking status Current every day smoker C bao Francois FAMILY HISTORY Family Member Condition Full Brother Family History of Co ngestive Heart Failure: INSURANCE PROVIDERS Payer name Policy type / Coverage type Tammy red green party ID [id number] PPO HMO [id number] ADVANCE DIRECTIVES Name Date DISCUSSED - NO DECISION MADE TREATMENT PLAN Date Name Performer Cardiology New Patient Ru dawson MD Cardiology New Patie nt :Will order a 30 day telesentry monitor. Ru Her MD Cardiology New Patient :Will tal ck a nuclear stress test. Ru Her MD Cardiology New Patie nt :The Patient was reencouraged to stop smoking. Ru Her MD Date Name Stress Exercise Card iolite Mobile Cardiac Tele HISTORY OF PROCEDURES Procedure Date Procedure Name Provider Procedure Notes S tatus Event Monitor Ru Her MD comple perez Cardiolite, 2 units Ru Her MD completed SPECT Images Ru Her MD complet ed Stress EKG Ru Her MD completed EKG Ru Her MD completed
--- OUTSIDE RECORDS SUMMARY | 2024-10-11 10:36 | XMS_ITS | Patient Health Record ---
Author Organization [facility], [facility] Address [address] [place] [address] Care Team Providers Care Hod Carrier Name Role Phone Janice Parker Primary Care Provider Alejandro Hooker Unavailable [phone] Migration, Provider Unavailable Unavailable Reason For Referral No Information Medications Medication SIG (Take, Route, Frequency, Duration) Notes Start Date End Date Status Sulfamethoxazole-Tr imethoprim 800-160 MG 1 tab(s) orally every 12 hours for 10 day(s) Active traMADol HCl 50 MG 1 tab(s) orally every 12 hours for 30 day(s) 10/17/2020 Active Famotidine 40 1 TAB (S) ORALLY DAILY for 30 DAY(S) *Please review and pick correct strength-formulatio n from [employer]pan options. If intended option is not shown, discontinue and re-order from Quick Search* 12/20/2020 Active Omeprazole 40 MG 1 cap(s) orally once a day for 30 day(s) Active ACCU-CHECK GUIDE TEST STRIPS E16.2 FINGERSTICK TWICE A DAY for 30 DAY(S) *Please review for potential replacement for e-prescription and drug interaction check* 04/01/2021 Active Immunizations Vaccine Route Administration Date Status Comme nts Influenza Quad, 6M , preservative free Unknown 10/17/19 21 Pending Social History Tobacco Use: Social History Observation Description Date Details (start date - stop date) Current Smoker NA - NA Sex Assigned At : Social History Observation Description Sex Assigned At Male Alcohol: Question Answer Notes Did you have a drink containing alcohol in the p ast year? No Points 0 Interpretation Negative Sexual Activity: Question Answer Notes Have you had sex in the past 12 months? (vaginal , anal or oral) No Have you ever had an STD? No Tobacco Use/Smoking Question Answer Notes Are you a smoker? Current How often do you smoke or chew? every day How many cigarettes a day do you smoke or how often do you chew a day? 6-10 Problems Problem Type SNOMED Code ICD Code Onset Dates Problem Status W/U Status Risk Notes Problem 129860787 Obesity, unspeci fied (E66.9) Active confirmed Problem 90992840 Other chronic pa in (G89.29) Active confirmed Problem 907467077 Chronic GERD (K21.9) Active confirmed Problem 888682901 BMI 35.0-35.9,ad ult (Z68.35) Active confirmed Problem 227408931 Body mass index [BMI] 36.0-36.9, adult (Z68.36) Active confirmed Problem 952676725 First degree hea rt block by electrocardiogram (I44.0) Active confirmed Encounters Encounter Location Date Provider Diagnosis [address] [address] 06/03/2024 Provider Migration Chronic GERD K21.[address] [address] 08/22/2024 Alejandro Hooker Assessments Encounter Date Diagnosis (ICD Code) Assessment Notes Treatment Notes Treatment Clinical Notes Section Notes 06/03/2024 Chronic GERD (ICD-10 - K21.9) 08/22/2024 Screened pt in [place]; pt doesn't have QMB. aden Plan Of Treatment Future Test Test Name Order Date HIV Screening 10/17/2020 Hepatitis C Ab Rflx Quant PCR 10/17/2020 CBC Complete 11/14/2020 PSA (Prostate-Specific Ag, Serum) 2020 Lipid Panel 11/14/2020 Comp. Metabolic Panel (14) 11/14/2020 TSH Reflex to abnormal Free T-4 11/15/19 21 PT/INR (Prothrombin Time) 12/20/2020 PTT, Activated 12/20/2020 Insurance Providers Payer Name Payer Address Payer Phone Subscriber Number Group Number Insured Name Patient Relationship to Insured Coverage Start Date Coverage End Date [employer] [place] Claim Dept [address] [address] [place] [address] [phone] [id number] Karel Cole Self - patient is the insured 0 Medical (General) History Medical History History ICD Code non-compliant Degenerative Osteo Arthritis RA of hands CVA 2014-right jaw numbness Hypoglycemia, unspecified E16.2 Surgical History Surgery Date(Month/Year) Appendectomy 2019 [id number] 2019 Left Knee replacment 2018 Right Knee replacement 2018 Sinus SX- deviated septum/sinus repair 2 018 Hospitalization History Reason Date(Month/Year) Neck SX 2018 Knee SX 2018 Appendectomy 2019
--- OUTSIDE RECORDS SUMMARY | 2024-10-11 10:36 | XMS_ITS ---
Author Organization [facility] Address [address] [place] [address] Care Team Providers Care Learning Analyst Name Role Phone Janice Parker Primary Care Provider [phone] Migration, Provider Unavailable Unavailable [facility] VISIT [facility] Encounter Medications Medication SIG (Take, Route, Frequency, Duration) Notes Start Date End Date Status Sulfamethoxazole-Tr imethoprim 800-160 MG 1 tab(s) orally every 12 hours for 10 day(s) Active traMADol HCl 50 MG 1 tab(s) orally every 12 hours for 30 day(s) 10/17/2020 Active Famotidine 40 1 TAB (S) ORALLY DAILY for 30 DAY(S) *Please review and pick correct strength-formulatio n from [facility] options. If intended option is not shown, discontinue and re-order from Quick Search* 12/20/2020 Active Omeprazole 40 MG 1 cap(s) orally once a day for 30 day(s) Active ACCU-CHECK GUIDE TEST STRIPS E16.2 FINGERSTICK TWICE A DAY for 30 DAY(S) *Please review for potential replacement for e-prescription and drug interaction check* 04/01/2021 Active Social History Sex Assigned At : Social History Observation Description Sex Assigned At Male Encounters Encounter Location Date Provider Diagnosis [facility] [address] [place] [address] 06/03/2024 Provider Migration Chronic GERD K21.9 Assessments Encounter Date Diagnosis (ICD Code) Assessment Notes Treatment Notes Treatment Clinical Notes Section Notes 06/03/2024 Chronic GERD (ICD-10 - K21.9) Plan Of Treatment Medication Medication Name Sig Start Date Stop Date Notes Famotidine 40 1 TAB (S) ORALLY DIAMOND LY for 30 DAY(S) 12/20/2020 *Please review and pick correct strength-formulation from [facility]. If intended option is not shown, discontinue and re-order from Quick Search* Omeprazole 40 MG 1 cap(s) orally once a day for 30 day(s) ACCU-CHECK GUIDE TEST STRIPS E16.2 FINGERSTICK TWICE A DAY for 30 DAY(S) 04/01/2021 *Please review for potential replacement for e-prescription and drug interaction check* Progress Notes * Karel CORTESDOB:1959 (64 yo M)Acc No.[id number]:06/03/2024 Patient:?Karel CORTES Provider:? :1960???Age:63 Y???Sex:Male Geo e:06/03/2024 Address:[address] [place] [address], [phone] Pcp:Janice Parker Subjective: * Chief Complaints: * ???1. [facility] To [facility] version Encounter. * Medical History:? * Medications:?Taking traMADol HCl 50 MG Tablet 1 tab(s) orally every 12 hours , Taking Sulfamethoxazole-Trimethoprim 800-160 MG Tablet 1 tab(s) orally every 12 hours Objective: * Vitals:? Assessment: * Assessment: 1.?Chronic GERD - K21.9??? Plan: * Treatment: 2.?Others? Start ACCU-CHECK GUIDE TEST STRIPS, E16.2, FINGERSTICK, TWICE A DAY, 30 DAY(S), 60 STRIP, Refills 3, Notes to Pharmacist: *Please review for potential replacement for e-prescription and drug interaction check*.?? * Billing Information: * Visit Code:? * Procedure Codes:? * Electronic signature of Prov ider Migration on 10/11/2024 at 11:35 AM EST Sign off status: Pending * Provider:? Date:?06/03/2024 Generated for Ashley key/Marlin/Yehuda on:?10/11/2024 11:35 AM EST
--- OUTSIDE RECORDS SUMMARY | 2024-10-11 10:36 | XMS_ITS | Clinical Summary ---
Author Organization [facility] Address [address] [place] [address] Care Team Providers Care Dialysis Registered Nurse Name Role Phone Garett Zhu MD Primary Care Provider Allergies No known active allergies Medications aspirin [...] states he will not go back to [facility]; he will go to [facility] if he needs to go to ER (reminded him that EMS will take him to nearest facility) We may need an EGD; probably will send to [place] for that Repeating cxr next week to gauge resolution Continue and finish Augmentin Right rotator cuff tendinitis 07/09/2022 Assessment & Plan (10/15/2022 3:50 PM BULLDOGGER): Patient developed recurrent cuff tendinitis of the [...] recommended Assessment & Plan (10/16/2022 5:40 PM BULLDOGGER): BMI Follow-up includes: nutrition counseling, exercise counseling and education provided. Assessment & Plan (07/09/2022 3:49 PM CDT): Patient's current weight provides with a BMI over 41. Would highly encouraged him to work on a graduated low-impact exercise program in conjunction with proper dieting. Enlarged prostate 03/26/2022 Overview (03/26/2022): Added automatically from request for surgery [id number] Primary osteoarthritis of left shoulder 01/30/20 Assessment & Plan (10/15/2022 3:50 PM BULLDOGGER): Patient has known arthritis of the shoulder [...] establish care has been performed today. 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 04/08/2020 Overview (04/08/2020): Added automatically from request for surgery [id number] Cervical osteophyte 04/08/2020 Overview (04/08/2020): Added automatically from request for surgery [id number] S/P cervical spinal fusion 04/08/2020 Overview (04/08/2020): Added automatically from request for surgery [id number] Infection of cervical spine (CMS/HCC) 08/03/2019 Assessment & Plan (08/03/2019 12:27 PM BULLDOGGER): Posterior cervical fusion from C5-7 Cervical spine infection Recommended treatment is a direct admit to [facility] in a planned I and D of [...] (02/21/2019): Added automatically from request for surgery [id number] Cervical disc disorder at C6-C7 level with myelo tabatha 02/21/2019 Overview (02/21/2019): Added automatically from request for surgery [id number] Assessment & Plan (03/01/2023 1:19 PM CDT): [...] rate. Assessment & Plan (10/25/2019 10:38 AM BULLDOGGER): Healing posterior cervical fusion C5-7, performed on [...] (02/21/2019): Added automatically from request for surgery [id number] Cervical disc disorder with myelopathy of mid-cervical [...] daily. Assessment & Plan (09/20/2019 10:33 AM BULLDOGGER): Healing posterior cervical fusion C5-7 Cervical wound [...] month. Assessment & Plan (08/22/2019 9:41 AM BULLDOGGER): Healing posterior cervical fusion from C5-7 Cervical spine wound infection, incision and drainage on April 23, 2019 and August 04, 2019 Breanne were removed in office today. I also [...] levels. I am calling him in a [employer]St[employer]pak as well. Resolved Problems Problem Noted Date Diagnosed Date Resolved Date Alvarado's esophagus 06/07/2023 06/07/20 Encounters Date Type Department Care Team Description 08/31/2024 Telephone [facility] Accountable Care Organization [address] [place] [id number] Rosie Hopper CMA Unsuccessful Phone Call 1 ([facility]) from Last 3 Months Immunizations Name Administration Dates Next Due Influenza, Quadrivalent, Hig h Dose, Preservative Free, Intrr 07/05/2023 Influenza, Unspecified 06/07/2023(Deferr ed: Patient Refused),09/13/2022(Deferred: Patient Refused),09/13/2021(Deferred: Patient Refused),09/13/2021(Deferred: Patient Refused),09/13/2020(Deferred: Patient Refused) Surgical History Surgery Date Site/Laterality Comments FRACTURE SURGERY 09/13/1995 - 09/12/1996 Left wrist KNEE SURGERY Bilateral arthroplasty APPENDECTOMY SINUS SURGERY CERVICAL FUSION 03/27/2019 C5-7 PCF INCISION AND DRAINAGE 04/23/2019 CERVICAL WOUND I&D ABSCESS POSTERIOR SPINE CERVICAL / THORACIC 08/04/2019 Medical History Medical History Date Comments TIA (transient ischemic attack) Migraines Stroke (HCC) Arthritis Spinal stenosis in cervical region Cervical disc disorder at C6-C7 level with myelo tabatha Obesity (BMI 35.0-39.9 without comorbidity) BMI 35 Anxiety and depression Osteoarthritis Tobacco abuse GERD (gastroesophageal reflux disease) Alvarado's esophagus Enlarged prostate Hypoglycemia History of transfusion 2018 History of methicillin resistant staphylococcus aureus (MRSA) Family History * Patient is adopted Relation Name Status Comments Mother Other Social History Tobacco Use Types Packs/Day Years [...] on file Legal Sex Male 3:46 AM BULLDOGGER Gender Identity Not on file Sexual Orientation Not on file 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 Not on file Not on file Obstetrics History Last Filed Vital Signs Vital Sign Reading [...] 07/05/2023 3:02 PM CDT Plan of Treatment Health Maintenance Due Date Last Done Comments DTaP/Tdap/Td Vaccine (1 - Tdap) 1970 Hepatitis B Screening 1977 Zoster Vaccine (1 of 2) 2009 Colon Cancer Screening-Colonoscopy 03/25/2023 03/25/2018 Lung Cancer Screening 07/13/2023 07/13/2022 Influenza Vaccine (#1) 2024 07/05/2023 Depression Screening 07/05/2024 07/05/2023, 06/07/2023, 02/03/2023, Additional history exists Fall Risk Assessment 07/05/2024 07/05/2023, 06/07/2023, 06/04/2022, Additional history exists Abdominal Aortic Aneurysm (A AA) Screen 2024 05/25/2024, 04/21/2019 Pneumococcal vaccine 65+ (1 of 1 - PCV) 2024 Well Visit 65+ 2024 01/22/2022 Prostate Cancer Screening-PSA 06/07/2025 06/07/2023 Colon Cancer Screening-CT Colonography Discontinued 03/25/2018 Colon Cancer Screening-DNA Stool Discontinued 03/25/20 18 Colon Cancer Screening-FIT Discontinued 03/25/2018 Colon Cancer Screening-Sigmoidoscopy Discontinued 03/25/2018 Hepatitis C Screening Completed 01/22/2022 Medical Devices Implanted Type Area Motor Coach Operator Device Identifier Shelf Expiration Date Model / Serial / Lot Screw Bone Biased Angle L12 Mm Od3.5 Mm Cephelad Caudal Nonsterile Posterior Occipital Cervical Thoracic System 3500 Series - [id number] Implanted:Qty: 2 on 03/27/2019 by Mike Kirkland MD at [facility] N/A: Spine Cervical Core Link [id number] / / Core Link [id number] [place] 3.5mm 45mm Line Prebent Abraham Spinal Nonsterile 3500 Series - [id number] Implanted:Qty: 2 on 03/27/2019 by Mike Kirkland MD at [facility] N/A: Spine Cervical Core Link [id number] / / Screw Set Spinal 3500 Series - [id number] Implanted:Qty: 6 on 03/27/2019 by Mike Kirkland MD at [facility] N/A: Spine Cervical Core Link [id number] / / Screw Bone Biased Angle L14 Mm Od3.5 Mm Cephelad Caudal Nonsterile Posterior Occipital Cervical Thoracic System 3500 Series - [id number] Implanted:Qty: 4 on 03/27/2019 by Mike Kirkland MD at [facility] N/A: Spine Cervical Core Link [id number] / / Explanted Type Area Motor Coach Operator Device Identifier Shelf Expiration Date Model / Serial / Lot Adjustable Drill 3.5 X 1 Implanted:Qty: 1 Explanted:Qty: 1 on 03/27/2019 at [facility] N/A: Spine Cervical Core Link [id number] / / Description:Item documented as one time implant on implant screen by RN. Item listed in [facility] under supply screen, so angle entered on [...] ?0-6.20 ? 80-150 years ?Male ?0-6.20 The [place] PSA Total assay procedure was used. Results from different manufacturers or methods may not be comparable. Serial testing should be performed using the same method. Current interpretive data last revised 22. Blood 06/07/2023 10:3 8 AM CDT 06/07/2023 2:28 PM CDT Tete Bettencourt [facility] BLOOD ORDERABLES Final Resul t [facility] [address] Department [place] [address] * CT Lung Cancer Screening [...] AM T: ??07/14/2022 6:44 AM Report ID: [id number] Reading Location: ??[id number] Procedure Note Jesi Quintana, DO - 07/14/2022 [...] Jesi Quintana D.O. PS: PS Report ID: [id number] Reading Location: [place] [address] Garett Zhu MD IMG CT PROCEDURES Final Res ult * Hepatitis C antibody (01/22/2022 3:05 PM CDT) Hep C Ab Nonreactive Nonreactive ASH Comment: Interpretive Data Nonreactive: Antibodies to HCV [...] MICROBIOLOGY - GENERAL ORDERABLES Final Result [facility] [address] Department [place] [address] * CT Abdomen Pelvis W Contrast (04/21/2019 [...] Personal/Family Self 1960 [address] [place] [address] [place] [id number] [employer] CHOICE MEDICARE PPO MEDICARE SOLUTIONS MEDICARE [place] Advance Directives For more information, please contact: [phone] * Full Code (Latest Code Status on [...] 12:38 AM 04/19/2018 8:23 PM Care Teams Dialysis Registered Nurse Relationship Specialty Start Date End Date Garett Zhu MD [address] [place] [address] PCP - General Family Medicine 01/08/22
--- OUTSIDE RECORDS SUMMARY | 2024-10-11 10:36 | XMS_ITS ---
Author Organization [facility], [facility] Address [address] [place] [address] Care Team Providers Care Wellness Program Manager Name Role Phone Janice Parker Primary Care Provider [phone] Alejandro Hooker [phone] REASON FOR VISIT QMB Screening Social History Sex Assigned At : Social History Observation Description Sex Assigned At Male Encounters Encounter Location Date Provider Diagnosis [facility], [facility] [address] [place] [address] 08/22/2024 Alejandro Hooker Assessments Encounter Date Diagnosis (ICD Code) Assessment Notes Treatment Notes Treatment Clinical Notes Section Notes 08/22/2024 Screened pt in [facility]; pt doesn't have QMB. aden Plan Of Treatment No Information Progress Notes * SOPHIA KarelDOB:1959 (63 yo M)Acc No.[id number]:08/22/2024 Needs Assessment Patient:?KRYSTALABRAHAMKarel PATEL Provider:?Alejandro Hooker M.D. :1960???Age:63 Y???Sex:Male Geo e:08/22/2024 Address:[address] [place], [place] [id number] Pcp:Janice Parker Subjective: * Chief Complaints: * ???QMB Screening * Medical History:? * Medications:? Objective: * Vitals:? Assessment: * Assessment: Screened pt in [facility]; pt d oesn't have QMB. aden Plan: * Treatment: * Procedure Codes:? * Billing Information: * Visit Code:? * Procedure Codes:? Care Plan Details* * Sign off status: Completed true * Provider:?Alejandro Hooker M.D. Date:? 08/22/2024 Generated for Ashley key/Marlin/Yehuda on:?10/11/2024 11:35 AM EST
--- NOTE | 2024-10-11 10:39 | ECG_ITS ---
Test Date: 2024-10-11 10:46:15 Measurements Intervals [place] Rate: 72 P: 0 ME: 0 QRS: 39 QRSD: 134 T: 45 QT: 417 QTc: 457 Interpretive Statements SINUS RHYTHM RIGHT BUNDLE BRANCH BLOCK [120+ ms QRS DURATION, UPRIGHT V1, 40+ ms S IN I/aVL/V4/V5/V6] Occasional PVC No previous ECG available for comparison Electronically Signed On 10-12-2024 10:55:13 [employer]ER [employer]IPE by Alexander Barron M.D.
[2024-10-11 10:43] LABS: Alanine Aminotransferase 26 U/L (6-50); Albumin Level 4.5 g/dL (3.5-5.1); Alkaline Phosphatase 88 U/L (38-126); Anion Gap 12 mmol/L (4-12); Aspartate Amino Transferase 33 U/L (17-59); Bilirubin,Total 1.3 mg/dL (0.2-1.3); Blood Urea Nitrogen 28 mg/dL (9-20); Calcium 10.1 mg/dL (8.4-10.2); Carbon Dioxide 23 mmol/L (22-30); Chloride 104 mmol/L (98-107); Estimated CRCL calculation 113 ml/min; Estimated Glomerular Filt Rate > 60; Glucose 161 mg/dL (65-110); Lipase 101 U/L (23-300); Potassium 3.5 mmol/L (3.4-5.0); Sodium 139 mmol/L (137-145)
--- NOTE | 2024-10-11 10:44 | ED.GENADULT ---
HPI - General Adult General Chief complaint: Abdominal Pain Stated complaint: vomiting Time Seen by Provider: 10/11/24 10:22 History of Present Illness HPI narrative: 64-year-old male with history of hiatal hernia, type 2 diabetes peptic ulcers, TIA presenting to the emergency department for evaluation for nausea vomiting and lower abdominal pain. Patient does have a history of infection to his posterior neck and was seen at urgent care approximately 3 days ago and started on antibiotics. Patient has been unable to take antibiotics for the past 2 days due to the nausea and vomiting. Patient does have prior history cervical spine fusion. Patient did have infected hardware was on antibiotics for approximately 3 years ease were completed about 1.5 years ago. Patient noticed on Wednesday he had worsening neck pain and erythema and presented to [place] and was started on clindamycin. Patient has been unable to take the medications over the last 2 days. Surgery occurred at [facility]. Related Data Home Medications ?Medication ?Instructions ?Recorded ?Confirmed ?Last Taken ?Type duloxetine 60 mg capsule,delayed 60 mg PO DAILY 11/29/23 06/02/24 03/12/24 History release (Cymbalta) Allergies Allergy/AdvReac Type Severity Reaction Status Date / Time No Known Allergies Allergy Verified 10/11/24 11:39 Review of Systems Review of Systems: All systems reviewed & are unremarkable except as noted in HPI and below PMFSH Past Medical History Medical History Anxiety Arm fracture, left Arthritis CVA (cerebral vascular accident) Depression GERD (gastroesophageal reflux disease) HLD (hyperlipidemia) HTN (hypertension) MRSA (methicillin resistant Staphylococcus aureus) Osteoarthritis of left shoulder PUD (peptic ulcer disease) Skin tag Buttocks, removed TIA (transient ischemic attack) x2 Surgical History Surgical History H/O neck surgery H/O tooth extraction History of open reduction and internal fixation (ORIF) procedure Left arm Hx of appendectomy S/P total knee arthroplasty Bilateral knees Social History Social History Social History: caffeine 4 cups of coffee daily Smoking packs per day: 0.5 Smoking cigarettes per day: 10.0 Smoking status: Current every day smoker Tobacco type: pipe Alcohol intake: never Substance use: current Substance use type: marijuana Other substance usage details: Daily for back pain Do You Feel Safe in your Home?: Yes Lack of Transportation: No Lack of Food: Never True Current Housing: I Have Housing Concerned About Future Housing: No Difficulty Paying Gas/Electric Bills: No Difficulty Paying for Meds: No Currently Unemployed: No Education: High School Diploma/GED Difficulty w/ Childcare or Family Care: No Living arrangements: with family Occupation/Education: retired Gender identity (if verbalized by the patient): Male Sexual Orientation (if Verbalized by the Patient): Straight or Heterosexual Spiritual care concerns: No Agree to blood products: Yes Course Vital Signs Vital signs: Vital Signs Temperature 96.5 F L 10/11/24 09:53 Pulse Rate 56 L 10/11/24 09:53 Respiratory Rate 32 H 10/11/24 09:53 Blood Pressure 156/114 H 10/11/24 09:53 Pulse Oximetry 99 10/11/24 09:53 Oxygen Delivery Room Air 10/11/24 09:53 Temperature 96.5 F L 10/11/24 09:53 Pulse Rate 109 H 10/11/24 18:46 Respiratory Rate 32 H 10/11/24 18:46 Blood Pressure 121/87 10/11/24 18:46 Pulse Oximetry 97 10/11/24 18:46 Oxygen Delivery Room Air 10/11/24 09:53 Medical Decision Making [facility] Narrative Medical decision making narrative: 64-year-old male presents emergency department for evaluation for nausea vomiting and lower abdominal pain. Patient was afebrile but does have a leukocytosis of 12.7 and a hemoglobin of 18.1. Patient's INR is 1.0. Patient has no significant abnormalities on his CMP. Patient's troponin was elevated 0.047 the patient denies any chest pain or shortness of breath, no evidence of acute STEMI on the EKG. Abdominal CT did show multiple aneurysms which patient is aware of. Imaging was done at [facility]. Vascular surgery [facility] was consulted to verify there is no acute changes in these. CT scan of cervical spine does show C6 laminectomy with thick-walled fluid collection again seen from the postsurgical bed to the posterior skin, consistent with seroma versus abscess. Externally patient does have erythema. Patient was started on cefepime vanc and Flagyl. [facility] was consulted. I did talk to Dr. Zamarripa, vascular surgery for [facility] and I reviewed the images with her and she felt these aneurysms were all chronic with no acute changes Discussed the case with Neurosurgery at [facility] and patient was accepted for transfer. Patient left AMA. I attempted to convince the patient to stay and he became very irate and told me to stop talking. Patient was alert orientated when he signed out AMA and ambulated out of the emergency department under his own power. Vital Signs Vital Signs: Vital Signs Temperature 96.5 F L 10/11/24 09:53 Pulse Rate 56 L 10/11/24 09:53 Respiratory Rate 32 H 10/11/24 09:53 Blood Pressure 156/114 H 10/11/24 09:53 Pulse Oximetry 99 10/11/24 09:53 Oxygen Delivery Room Air 10/11/24 09:53 Temperature 96.5 F L 10/11/24 09:53 Pulse Rate 109 H 10/11/24 18:46 Respiratory Rate 32 H 10/11/24 18:46 Blood Pressure 121/87 10/11/24 18:46 Pulse Oximetry 97 10/11/24 18:46 Oxygen Delivery Room Air 10/11/24 09:53 Lab Data 10/11/24 10:28 10/11/24 10:28 Labs: Lab Results 10/11/24 10/11/24 10/11/24 Range/Units 10:27 10:28 13:18 WBC 12.7 H (4.5-10.0) K/mm3 RBC 6.38 H (4.6-6.20) M/mm3 Hgb 18.1 H D (14.0-18.0) g/dL Hct 52.6 H (42.0-52.0) % MCV 82.4 (80-100) fl MCH 28.4 (26-34) pg MCHC 34.4 (32-36) g/dl RDW 14.3 (11.5-14.5) % Plt Count 245 (150-375) k/mm3 MPV 11.1 H (7.4-10.4) fl Immature Gran % (Auto) 0.2 (0-0.5) % Neut % (Auto) 75.5 H (45.5-73.1) % Lymph % (Auto) 13.8 L (18.3-44.2) % [place] % (Auto) 8.4 (2.6-8.5) % Eos % (Auto) 1.3 (0-4.4) % Baso % (Auto) 0.8 (0.2-1.2) % Lymph # (Auto) 1.75 (0.9-3.2) K/mm3 [place] # (Auto) 1.1 H (0.1-0.6) K/mm3 Eos # (Auto) 0.2 (0-0.3) K/mm3 Baso # (Auto) 0.1 (0.0-0.1) K/mm3 Abs Immat Gran (auto) 0.03 (0.00-0.031) K/mm3 Absolute Neuts (auto) 9.6 H (1.3-6.7) K/mm3 Absolute Nucleated RBC 0.000 (0.0-0.012) K/mm3 Nucleated RBC % 0.0 (0.0-0.2) % PT 13.6 (11.1-14.7) Seconds INR 1.0 APTT 29.6 (22.3-36.8) Seconds Sodium 139 (137-145) mmol/L Potassium 3.5 (3.4-5.0) mmol/L Chloride 104 (98-107) mmol/L Carbon Dioxide 23 (22-30) mmol/L Anion Gap 12 (4-12) mmol/L BUN 28 H D (9-20) mg/dL Creatinine 0.93 (0.7-1.3) mg/dL Estim Creat Clear Calc 113 ml/min Estimated GFR > 60 (59 - ) Glucose 161 H (65-110) mg/dL Calcium 10.1 (8.4-10.2) mg/dL Magnesium 1.9 (1.6-2.3) mg/dL Total Bilirubin 1.3 (0.2-1.3) mg/dL AST 33 (17-59) U/L ALT 26 (6-50) U/L Alkaline Phosphatase 88 (38-126) U/L Troponin I 0.047 H* (0.000-0.034) ng/mL Total Protein 8.0 (6.3-8.2) g/dL Albumin 4.5 (3.5-5.1) g/dL Lipase 101 (23-300) U/L TSH (Reflex) 1.230 (0.465-4.68) uIU/mL Urine Color Yellow (Yellow) Urine Appearance Clear (Clear) Urine pH 6.0 (5.0-9.0) Ur Specific [place] > 1.045 H (1.001-1.035) Urine Protein 2+ H (Negative) mg/dL Urine Glucose (UA) 1+ H (Negative) mg/dL Urine Ketones 1+ H (Negative) mg/dL Ur Blood (Man) 3+ H (Negative) Urine Nitrate Negative (Negative) Urine Bilirubin Negative (Negative) Urine Urobilinogen 0.2 (<2.0) mg/dL Leukocyte Esterase Rfl Negative (Negative) KARIME/UL Urine RBC 21-50 H (0-2) /hpf Urine WBC 0-5 (0-3) /hpf Ur Squamous Epith Cells None seen (Few) /hpf Urine Bacteria None seen /hpf Urine Casts 0-2 10/11/24 Range/Units 14:23 WBC (4.5-10.0) K/mm3 RBC (4.6-6.20) M/mm3 Hgb (14.0-18.0) g/dL Hct (42.0-52.0) % MCV (80-100) fl MCH (26-34) pg MCHC (32-36) g/dl RDW (11.5-14.5) % Plt Count (150-375) k/mm3 MPV (7.4-10.4) fl Immature Gran % (Auto) (0-0.5) % Neut % (Auto) (45.5-73.1) % Lymph % (Auto) (18.3-44.2) % [place] % (Auto) (2.6-8.5) % Eos % (Auto) (0-4.4) % Baso % (Auto) (0.2-1.2) % Lymph # (Auto) (0.9-3.2) K/mm3 [place] # (Auto) (0.1-0.6) K/mm3 Eos # (Auto) (0-0.3) K/mm3 Baso # (Auto) (0.0-0.1) K/mm3 Abs Immat Gran (auto) (0.00-0.031) K/mm3 Absolute Neuts (auto) (1.3-6.7) K/mm3 Absolute Nucleated RBC (0.0-0.012) K/mm3 Nucleated RBC % (0.0-0.2) % PT (11.1-14.7) Seconds INR APTT (22.3-36.8) Seconds Sodium (137-145) mmol/L Potassium (3.4-5.0) mmol/L Chloride (98-107) mmol/L Carbon Dioxide (22-30) mmol/L Anion Gap (4-12) mmol/L BUN (9-20) mg/dL Creatinine (0.7-1.3) mg/dL Estim Creat Clear Calc ml/min Estimated GFR (59 - ) Glucose (65-110) mg/dL Calcium (8.4-10.2) mg/dL Magnesium (1.6-2.3) mg/dL Total Bilirubin (0.2-1.3) mg/dL AST (17-59) U/L ALT (6-50) U/L Alkaline Phosphatase (38-126) U/L Troponin I 0.036 H* D (0.000-0.034) ng/mL Total Protein (6.3-8.2) g/dL Albumin (3.5-5.1) g/dL Lipase (23-300) U/L TSH (Reflex) (0.465-4.68) uIU/mL Urine Color (Yellow) Urine Appearance (Clear) Urine pH (5.0-9.0) Ur Specific [place] (1.001-1.035) Urine Protein (Negative) mg/dL Urine Glucose (UA) (Negative) mg/dL Urine Ketones (Negative) mg/dL Ur Blood (Man) (Negative) Urine Nitrate (Negative) Urine Bilirubin (Negative) Urine Urobilinogen (<2.0) mg/dL Leukocyte Esterase Rfl (Negative) KARIME/UL Urine RBC (0-2) /hpf Urine WBC (0-3) /hpf Ur Squamous Epith Cells (Few) /hpf Urine Bacteria /hpf Urine Casts Discharge Plan Discharge Clinical Impression: Spinal abscess, Elevated troponin Patient Disposition: Left Against Medical Advice Condition: Serious Instructions: Antibiotic Form Patient Language: [place] Prescriptions: No Action duloxetine [Cymbalta] 60 mg capsule,delayed release(DR/EC) 60 mg PO DAILY pantoprazole 40 mg tablet,delayed release (DR/EC) 40 mg PO BID Qty: 60 11RF aspirin 81 mg Tablet,Delayed Release (Dr/Ec) 81 mg PO DAILY 90 Days Qty: 90 0RF pregabalin 75 mg capsule 75 mg PO BID Qty: 60 1RF meloxicam 15 mg tablet 15 mg PO DAILY Qty: 30 1RF rosuvastatin 5 mg tablet 5 mg PO DAILY Qty: 90 0RF Follow-up/Referrals: Lisandro Brown MD [Primary Care Provider] -
[2024-10-11] MEDS: HYDROmorphone HCL INJ (*CRX) 1 MG/ML SYR 0.5 MG IV PUSH ×2 (10:47→15:41)
[2024-10-11] MEDS: diphenhydrAMINE HCl INJ 50 MG/ML VIAL 25 MG IV PUSH (10:48)
[2024-10-11] MEDS: METOCLOPRAMIDE HCL INJ 10 MG/2 ML VIAL IV PUSH (10:48)
[2024-10-11] MEDS: FAMOTIDINE 20 MG/2 ML VIAL IV PUSH (10:48)
[2024-10-11] MEDS: PANTOPRAZOLE SODIUM IV 40 MG VIAL IV PUSH (10:48)
[2024-10-11] MEDS: SODIUM CHLORIDE 0.9% IV 1,000 ML 999 ML IV CONT (10:48)
[2024-10-11] MEDS: ONDANSETRON INJ 4 MG/2 ML VIAL IV PUSH (10:49)
[2024-10-11 11:06] LABS: Prothrombin Time 13.6 Seconds (11.1-14.7)
[2024-10-11 11:07] LABS: Partial Thromboplastin Time 29.6 Seconds (22.3-36.8)
--- NOTE | 2024-10-11 11:26 | PC.NURSE ---
pt's Sp02 in the 70's upon arrival from CT. pt came back up to 90%, pt placed on 2L oxygen Sp02 100%
[2024-10-11 11:36] LABS: Troponin I 0.047 ng/mL (0.000-0.034)
--- OUTSIDE RECORDS SUMMARY | 2024-10-11 11:36 | XMS_ITS | CONTINUITY OF CARE DOCUMENT ---
Author Name sea osei Address Unknown Organization [facility] Address [address] [place] [address] Phone [phone] Care Team Providers Care Stripper Shovel Operator Name Role Phone Taina BENSON, Ru Unavailable [phone] Eren Allan MD Unavailable Esteban Cano MD Unavailable [phone] PROBLEMS Condition Status Date Provider Notes Chest pain active Ru Her MD Syncope active Ru Her MD Abnormal EKG active Ru Her MD Tobacco abuse active Ru Her MD Anxiety active Ru Her MD Hx of Stroke active Ru Her MD Dyspnea on exertion active Ru Her MD Cardiology examination active Ru Her MD ENCOUNTERS Date Type Provider Location Encounter Diag nosis - In-person encounter Office Visit Ru Her MD [facility] Cardiology examinationChest painDyspnea on exertionHx of [...] atadarsh has been counseled to quit. Ru Hre MD social history reviewed E&M revi ewed [...] red green party ID HUMANDiallo PPO HMO [id number] ADVANCE DIRECTIVES Name Date DISCUSSED - NO [...]
--- OUTSIDE RECORDS SUMMARY | 2024-10-11 11:36 | XMS_ITS | Clinical Summary ---
Author Organization [facility] Address [address] [place] [address] Care Team Providers Care Admin Asst Name Role Phone Garett Zhu MD Primary [...] states he will not go back to [facility]; he will go to [facility] if he needs to go to ER (reminded him that EMS will take him to nearest facility) We may need an EGD; probably will send to [place] for that Repeating cxr next week to gauge resolution Continue and finish Augmentin Right rotator cuff tendinitis 07/09/2022 Assessment & Plan (10/15/2022 3:50 PM CHIEF PRIVACY OFFICER): Patient developed recurrent cuff tendinitis of the [...] recommended Assessment & Plan (10/16/2022 5:40 PM CHIEF PRIVACY OFFICER): BMI Follow-up includes: nutrition counseling, exercise counseling and education provided. Assessment & Plan (07/09/2022 3:49 PM CDT): Patient's current weight provides with a BMI over 41. Would highly encouraged him to work on a graduated low-impact exercise program in conjunction with proper dieting. 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 04/08/2020 Overview (04/08/2020): Added automatically from request for surgery [id number] Cervical osteophyte 04/08/2020 Overview (04/08/2020): Added automatically from request for surgery [id number] S/P cervical spinal fusion 04/08/2020 Overview (04/08/2020): Added automatically from request for surgery [id number] Infection of cervical spine (CMS/HCC) 08/03/2019 Assessment & Plan (08/03/2019 12:27 PM CHIEF PRIVACY OFFICER): Posterior cervical fusion from C5-7 Cervical spine infection Recommended treatment is a direct admit to [facility] in a planned I and D of [...] (02/21/2019): Added automatically from request for surgery [id number] Cervical disc disorder at C6-C7 level with myelo tabatha 02/21/2019 Overview (02/21/2019): Added automatically from request for surgery [id number] Assessment & Plan (03/01/2023 1:19 PM CDT): [...] rate. Assessment & Plan (10/25/2019 10:38 AM CHIEF PRIVACY OFFICER): Healing posterior cervical fusion C5-7, performed on [...] (02/21/2019): Added automatically from request for surgery [id number] Cervical disc disorder with myelopathy of mid-cervical [...] daily. Assessment & Plan (09/20/2019 10:33 AM CHIEF PRIVACY OFFICER): Healing posterior cervical fusion C5-7 Cervical wound [...] month. Assessment & Plan (08/22/2019 9:41 AM CHIEF PRIVACY OFFICER): Healing posterior cervical fusion from C5-7 Cervical [...] levels. I am calling him in a [place] as well. 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 Not on file Not [...] Completed 01/22/2022 Medical Devices Implanted Type Area District Director Device Identifier Shelf Expiration Date Model / Serial / Lot Screw Bone Biased Angle L12 Mm Od3.5 Mm Cephelad Caudal Nonsterile Posterior Occipital Cervical Thoracic System 3500 Series - [id number] Implanted:Qty: 2 on 03/27/2019 by Mike Kirkland MD at [facility] N/A: Spine Cervical Core Link [id number] / / Core Link [id number] [place] 3.5mm 45mm Line Prebent Abraham Spinal Nonsterile 3500 Series - [id number] Implanted:Qty: 2 on 03/27/2019 by Mike Kirkland MD at [facility] N/A: Spine Cervical Core Link [id number] / / Screw Set Spinal 3500 Series - [id number] Implanted:Qty: 6 on 03/27/2019 by Mike Kirkland MD at [facility] N/A: Spine Cervical Core Link [id number] / / Screw Bone Biased Angle L14 Mm Od3.5 Mm Cephelad Caudal Nonsterile Posterior Occipital Cervical Thoracic System 3500 Series - [id number] Implanted:Qty: 4 on 03/27/2019 by Mike Kirkland MD at [facility] N/A: Spine Cervical Core Link [id number] / / Explanted Type Area District Director Device Identifier Shelf Expiration Date Model / Serial / Lot Adjustable Drill 3.5 X 1 Implanted:Qty: 1 Explanted:Qty: 1 on 03/27/2019 at [facility] N/A: Spine Cervical Core Link [id number] / / Description:Item documented as one time implant on implant screen by RN. Item listed in [facility] under supply screen, so angle entered [...] CDT 06/07/2023 2:28 PM CDT Tete Bettencourt SHORTHAND REPORTER LAB BLOOD ORDERABLES Final Resul t [facility] [address] [address] Department [place] [address] * CT Lung Cancer Screening [...] AM T: ??07/14/2022 6:44 AM Report ID: [id number] Reading Location: ??[id number] Procedure Note Jesi Quintana, DO - 07/14/2022 [...] Jesi Quintana D.O. PS: PS Report ID: [id number] Reading Location: [place] [address] Garett Zhu MD IMG CT PROCEDURES Final [...] - GENERAL ORDERABLES Final Result ASH MOYA [address] [address] Department [place] [address] * CT Abdomen Pelvis W Contrast (04/21/2019 [...] Personal/Family Self 1960 [address] [place] [id number] [employer] CHOICE MEDICARE PPO MEDICARE SOLUTIONS MEDICARE [employer] Advance Directives For more information, please contact: [phone] * Full Code (Latest Code Status on [...] 12:38 AM 04/19/2018 8:23 PM Care Teams Admin Asst Relationship Specialty Start Date End Date Garett Zhu MD [address] [place] [address] PCP - General Family Medicine 01/08/22
--- OUTSIDE RECORDS SUMMARY | 2024-10-11 11:36 | XMS_ITS | Encounter Summary ---
Author Organization [facility] Address [address] [place] [address] Care Team Providers Care Edger Machine Helper Name Role Phone Bro Hughes MD Primary Care Provider [phone] Garett Zhu MD Primary Care Provider [phone] Cynthia Ayers MA Unavailable [phone] Reason for Visit * Reason Onset Date Comments covid screening 03/18/2020 lm for the pt wi th ct info Encounter Details Date Type Department Care Team (Late st Contact Info) Description 03/18/2020 Telephone [facility] [address] [place] [address] Ondina Oritz [place] covid screening (lm for the pt [...] on file Legal Sex Male 3:46 AM DOORSHAKER Gender Identity Not on file Sexual Orientation [...] documented as of this encounter Care Teams Edger Machine Helper Relationship Specialty Start Date End Date Bro Hughes MD [address] [place] [address] PCP - General 02/21/20 01/07/22 Garett Zhu MD [address] [place] [address] PCP - General Family Medicine 01/08/22 Cynthia Ayers MA [address] [place] [address] [employer] [facility] Medical Art Therapist 09/01/22 09/02/22 documented as of this encounter
--- OUTSIDE RECORDS SUMMARY | 2024-10-11 11:36 | XMS_ITS | Referral Summary ---
Author Organization [facility] Address [address] [place] [address] Care Team Providers Care Licensed Direct Entry Midwife Name Role Phone Garett Zhu MD Primary Care Provider Encounters Date Type Department Care Team Description 08/31/2024 Telephone [facility] Accountable Care Organization [address] [place] [id number] Rosie Hopper CMA Unsuccessful Phone Call 1 ([facility] BP QC) from Last 3 Months [...] states he will not go back to [facility]; [facility] if he needs to go to ER (reminded him that EMS will take him to nearest facility) We may need an EGD; probably will send to [place] for that Repeating cxr next week to gauge resolution Continue and finish Augmentin Right rotator cuff tendinitis 07/09/2022 Assessment & Plan (10/15/2022 3:50 PM WORK ORDER CLERK): Patient developed recurrent cuff tendinitis of the [...] recommended Assessment & Plan (10/16/2022 5:40 PM WORK ORDER CLERK): BMI Follow-up includes: nutrition counseling, exercise counseling and education provided. Assessment & Plan (07/09/2022 3:49 PM CDT): Patient's current weight provides with a BMI over 41. Would highly encouraged him to work on a graduated low-impact exercise program in conjunction with proper dieting. 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 04/08/2020 Overview (04/08/2020): Added automatically from request for surgery [id number] Cervical osteophyte 04/08/2020 Overview (04/08/2020): Added automatically from request for surgery [id number] S/P cervical spinal fusion 04/08/2020 Overview (04/08/2020): Added automatically from request for surgery [id number] Infection of cervical spine ([facility]) 08/03/2019 Assessment & Plan (08/03/2019 12:27 PM WORK ORDER CLERK): Posterior cervical fusion from C5-7 Cervical spine infection Recommended treatment is a direct admit to [facility] in a planned I and D of [...] (02/21/2019): Added automatically from request for surgery [id number] Cervical disc disorder at C6-C7 level with myelo tabatha 02/21/2019 Overview (02/21/2019): Added automatically from request for surgery [id number] Assessment & Plan (03/01/2023 1:19 PM CDT): [...] rate. Assessment & Plan (10/25/2019 10:38 AM WORK ORDER CLERK): Healing posterior cervical fusion C5-7, performed on [...] (02/21/2019): Added automatically from request for surgery [id number] Cervical disc disorder with myelopathy of mid-cervical [...] daily. Assessment & Plan (09/20/2019 10:33 AM WORK ORDER CLERK): Healing posterior cervical fusion C5-7 Cervical wound [...] month. Assessment & Plan (08/22/2019 9:41 AM WORK ORDER CLERK): Healing posterior cervical fusion from C5-7 Cervical spine wound infection, incision and drainage on April 23, 2019 and August 04, 2019 [place] were removed in office today. I also [...] levels. I am calling him in a [place] Dosepak as well. 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 N/A: Spine Cervical Core Link [id number] / / Core Link [id number] [place] 3.5mm 45mm Line Prebent Abraham Spinal Nonsterile 3500 Series - [id number] Implanted:Qty: 2 on 03/27/2019 by Mike Kirkland MD at [facility] N/A: Spine Cervical Core Link [id number] / / Screw Set Spinal 3500 Series - [id number] Implanted:Qty: 6 on 03/27/2019 by Mike Kirkland MD at [facility] N/A: Spine Cervical Core Link [id number] / / Screw Bone Biased Angle L14 Mm Od3.5 Mm Cephelad Caudal Nonsterile Posterior Occipital Cervical Thoracic System 3500 Series - [id number] Implanted:Qty: 4 on 03/27/2019 by Mike Kirkland MD at [facility] N/A: Spine Cervical Core Link [id number] / / Explanted Type Area Department Of Natural Resources Officer Device Identifier Shelf Expiration Date Model / Serial / Lot Adjustable Drill 3.5 X 1 Implanted:Qty: 1 Explanted:Qty: 1 on 03/27/2019 at [facility] N/A: Spine Cervical Core Link [id number] [...] ?0-6.20 ? 80-150 years ?Male ?0-6.20 The Exogenesis PSA Total assay procedure was used. Results from different manufacturers or methods may not be comparable. Serial testing should be performed using the same method. Current interpretive data last revised 22. Blood 06/07/2023 10:3 8 AM CDT 06/07/2023 2:28 PM CDT us Tete Bettencourt [facility]ER LAB BLOOD ORDERABLES Final Resul t Performing Organization Address City/State/[facility] Co de Phone Number ASH [address] [address] [place] [address] * CT Lung Cancer Screening [...] AM T: ??07/14/2022 6:44 AM Report ID: [id number] Reading Location: ??[id number] Procedure Note Jesi Quintana, DO - 07/14/2022 [...] Jesi Quintana D.O. PS: PS Report ID: [id number] Reading Location: [place] [address] Garett Zhu MD IMG CT PROCEDURES Final [...] - [place]AL [place] [address] [address] Hao [place] [address] * CT Abdomen Pelvis W Contrast (04/21/2019 [...] Personal/Family Self 1960 [address] [place] [phone] [employer] CHOICE MEDICARE PPO MEDICARE SOLUTIONS Advance Directives For more information, please contact: [phone] * Full Code (Latest Code Status on [...] 12:38 AM 04/19/2018 8:23 PM Care Teams Licensed Direct Entry Midwife Relationship Specialty Start Date End Date Garett Zhu MD [address] [place] [address] PCP - General Family Medicine 01/08/22
[2024-10-11 11:47] LABS: Magnesium 1.9 mg/dL (1.6-2.3)
[2024-10-11 13:34] LABS: Add Urine Microscopic? YES; Appearance Urine Clear (Clear); Bacteria Urine None Seen /hpf; Bilirubin Urine Negative (Negative); Blood Urine 3+ (Negative); Color Urine Yellow (Yellow); Glucose Urine UA 1+ mg/dL (Negative); Ketones Urine 1+ mg/dL (Negative); Leukocyte Esterase Ur Negative LEU/UL (Negative); Nitrate Urine Negative (Negative); Non Pathogenic Casts 0-2; Protein Urine 2+ mg/dL (Negative); RBC Urine 21-50 /hpf (0-2); Specific Grav Ur > 1.045 (1.001-1.035); Squamous Epithelial Cell Urine None Seen /hpf (Few); Urobilinogen Urine 0.2 mg/dL (<2.0); WBC Urine 0-5 /hpf (0-3)
[2024-10-11] MEDS: CEFEPIME 1 GM/NS 50 ML 1 GM/50 ML BAG IVPB (14:12)
[2024-10-11] MEDS: metroNIDAZOLE 500 MG/ISO 100ML 500 MG/100 ML BAG 100 MG IVPB (14:20)
--- NOTE | 2024-10-11 14:25 | ECG_ITS ---
Test Date: 2024-10-11 14:29:39 Measurements Intervals [place] Rate: 56 P: 59 OK: 241 QRS: 13 QRSD: 133 T: 65 QT: 470 QTc: 456 Interpretive Statements SINUS BRADYCARDIA WITH FIRST DEGREE AV BLOCK WITH OCCASIONAL SUPRAVENTRICULAR PREMATURE COMPLEXES RIGHT BUNDLE BRANCH BLOCK [120+ ms QRS DURATION, UPRIGHT V1, 40+ ms S IN I/aVL/V4/V5/V6] Electronically Signed On 10-12-2024 10:55:39 NIGHT MONITOR by Alexander Barron M.D.
[2024-10-11 15:00] LABS: Troponin I 0.036 ng/mL (0.000-0.034)
[2024-10-11] MEDS: VANCOMYCIN 1,500 MG/NS 500 ML 1,500 MG/500 ML BAG 250 MG IVPB (15:40)
--- NOTE | 2024-10-11 17:10 | PC.NURSE ---
Spoke with [facility] transfer line. pt has been accepted to the neurosurgery floor. transfer line states could be a day or 2 for a bed.
== END 2024-10-11 19:59 | disposition left against medical advice (07) ==
PROVIDERS: Emergency Provider Emergency Medicine; PCP Family Medicine
DX: T81.49XA Infection following a procedure, other surgical site, initial encounter (principal); G06.1 Intraspinal abscess and granuloma; R79.89 Other specified abnormal findings of blood chemistry; R10.30 Lower abdominal pain, unspecified; I10 Essential (primary) hypertension; E78.5 Hyperlipidemia, unspecified; E11.9 Type 2 diabetes mellitus without complications; I72.8 Aneurysm of other specified arteries; I71.40 Abdominal aortic aneurysm, without rupture, unspecified; M19.012 Primary osteoarthritis, left shoulder; K44.9 Diaphragmatic hernia without obstruction or gangrene; Z98.1 Arthrodesis status; Z86.73 Personal history of transient ischemic attack (TIA), and cerebral infarction without residual deficits; Z87.11 Personal history of peptic ulcer disease; Z86.14 Personal history of Methicillin resistant Staphylococcus aureus infection; Z79.82 Long term (current) use of aspirin; Z79.899 Other long term (current) drug therapy; K57.30 Diverticulosis of large intestine without perforation or abscess without bleeding; M47.812 Spondylosis without myelopathy or radiculopathy, cervical region; Y83.8 Other surgical procedures as the cause of abnormal reaction of the patient, or of later complication, without mention of misadventure at the time of the procedure
CPT/HCPCS: 36415; 71275; 72126; 74174; 80053; 81001; 83690; 83735; 84443; 84484; 85025; 85610; 85730; 87040; 93005; 96365; 96366; 96367; 96375; 99284; J0692; J1171; J1200; J1836; J2405; J2470; J2765; J3370; J7030; Q9967

== ENCOUNTER 2025-06-18 11:20 | Outpatient (CLI) | payer MEDICARE, SELFPAY ==
--- NOTE | ~2025-06-18 | CT_ITS ---
EXAMINATION: CT soft tissue neck w con DATE: 06/18/2025 11:55 INDICATION: Neck abscess. TECHNIQUE: Computed tomography (CT) of the neck was performed with 75 mL Omnipaque-350 intravenous contrast. Automated exposure control and iterative reconstruction technique were employed. The dose-length product was 482.93 mGy-cm. COMPARISON: CT cervical spine 10/11/2024 FINDINGS: There are no pathologically enlarged lymph nodes. There is plaque in the proximal internal carotid arteries is 0% stenosis relative to normal distal artery lumen diameters. There is a calcification in right palatine tonsil. There is a small right mastoid effusion. There is mucosal thickening in the paranasal sinuses. There are changes of posterior fusion procedure from C5 to C7 with lateral mass screws. There is severe cervical spondylosis. There are changes of laminectomy at C6. IMPRESSION: 1. No abscess. Reviewed, dictated and finalized at location E. IMPRESSION: 1. No abscess.
[2025-06-18 11:43] LABS: Estimated Glomerular Filt Rate > 60
== END 2025-06-18 11:21 | disposition home or self-care (01) ==
LOC: MICIMG 11:21
DX: L02.11 Cutaneous abscess of neck (principal)
CPT/HCPCS: 70491; Q9967

== ENCOUNTER 2025-09-03 11:49 | Outpatient (CLI) | payer MEDICARE, SELFPAY ==
--- NOTE | ~2025-09-03 | XR_ITS ---
EXAMINATION: XR wrist LT 2V DATE: 09/03/2025 12:21 INDICATION: Left wrist pain TECHNIQUE: Posteroanterior and lateral views of the left wrist were obtained. COMPARISON: none FINDINGS: Diffuse osteopenia. Old healed fracture deformity of the distal left radius which is healed with 15 degree dorsal an 10 degrees radial angulation at the distal metadiaphysis and compensatory 15 degrees volar angulation at the metaphyseal region. Aside from 3 mm secondary ulnar positive variance. Alignment at the wrist joint and carpus remains essentially anatomic. Chronic nondisplaced, nonunited avulsion fracture of the ulnar styloid process. No other fractures identified. Polyarticular osteoarthritis, moderate severity at the distal radioulnar and wrist joints with subarticular cystlike change at the distal radius. Additional mild osteoarthritis at the midcarpal, triscaphe, first carpometacarpal and first metacarpophalangeal joints. There is volar sided soft tissue swelling with prominent volar bulging of the pronator fat pad suggesting an underlying mass or fluid collection. IMPRESSION: 1. Foci of soft tissue swelling with volar bulging of the pronator fat-pad at the distal left forearm which suggests a possible underlying deep mass or fluid collection. Could consider pre and postcontrast MRI for further evaluation. 2. Old healed fracture deformity of the distal left radius and chronic nondisplaced ununited avulsion fracture of the ulnar styloid process. No acute osseous abnormality. 3. Polyarticular osteoarthritis at the left hand and wrist moderate severity and likely secondary to prior trauma at the distal radioulnar and wrist joints and mild at the radial aspect of the carpus and thumb. Reviewed, dictated and finalized at location A. [employer] IMPRESSION: 1. Foci of soft tissue swelling with volar bulging of the pronator fat-pad at t he distal left forearm which suggests a possible underlying deep mass or fluid collection. Could consider pre and postcontrast MRI for further evaluation. 2. Old healed fracture deformity of the distal left radius and chronic nondispl aced ununited avulsion fracture of the ulnar styloid process. No acute osseous abnormality. 3. Polyarticular osteoarthritis at the left hand and wrist moderate severity an d likely secondary to prior trauma at the distal radioulnar and wrist joints an d mild at the radial aspect of the carpus and thumb.
== END 2025-09-03 11:50 | disposition home or self-care (01) ==
DX: M19.032 Primary osteoarthritis, left wrist (principal)
CPT/HCPCS: 73100